=== PATIENT | male | born 1975 | race Caucasian/White ===

== ENCOUNTER 2020-05-06 15:33 | Outpatient (REF) | payer MEDICARE, MEDICAID, SELFPAY ==
--- NOTE | 2020-05-06 | US_ITS ---
EXAMINATION: US RETROPERITONEAL LIMITED (RENAL ONLY) CLINICAL INFORMATION: Kidney stones. COMPARISON: CT abdomen and pelvis 05/06/2019. Renal ultrasound 07/27/2017 and 07/01/2017. KUB 11/22/2007 and 07/28/2007. TECHNIQUE: Real-time imaging of the kidneys. FINDINGS: RIGHT KIDNEY: 11.2 x 5.6 x 6.1 cm (SAG x AP x TRV). The kidney is normal in size, contour, and echogenicity. Renal cortical thickness is normal. No calculi or focal parenchymal lesions. No hydronephrosis. LEFT KIDNEY: 12.5 x 7.0 x 6.5 cm (SAG x AP x TRV). The kidney is normal in size, contour, and echogenicity. Renal cortical thickness is normal. No renal calculi or hydronephrosis. Upper pole simple cyst measuring 1.4 x 1 x 1.2 cm. ADDITIONAL FINDINGS: Incidental note is made of a complex cyst in the right lobe of the liver measuring 3.4 x 3 x 3.2 cm. Internal septation noted. No Doppler vascularity. This corresponds with the appearance on previous CT. US/US renal BI IMPRESSION: No hydronephrosis. No renal calculi are seen. Left renal cyst noted..
== END 2020-05-06 15:34 | disposition home or self-care (01) ==
LOC: HO.HMGCX 15:33
PROVIDERS: Visit Provider Internal Medicine
DX: N20.0 Calculus of kidney (principal)
CPT/HCPCS: 76775

== ENCOUNTER → 2020-07-18 09:20 | Outpatient (REF) | payer MEDICARE, MEDICAID, SELFPAY ==
--- NOTE | 2020-07-18 09:30 | CA_ITS ---
Transthoracic Echocardiogram Patient (Last, First, Middle): Bhanu Marc, Gender: Male Date of : 1975 Age: 44 Procedure Date: 07/18/2020 Procedure Type: Transthoracic Echocardiogram Location: OP Height: 182.88 cm Weight: 106.6 kg BSA: 2.28 m2 Heart Rate: bpm BP: 136 / 80 mmHg Cabinet Professional: Referring MD: Kirby Trinidad MD Symptoms: R40.20 UNSPECIFIED COMA Study Quality: Good ECG Rhythm: Sinus Conclusions: - Normal study Findings Left Ventricle Normal left ventricular size, thickness, systolic function, and wall motion. The visually estimated ejection fraction is between 55-60%. Diastolic function is normal for age. Right Ventricle Normal right ventricular cavity size and systolic function. Atria Both atria are normal in size. Aortic Valve Normal aortic valve structure and function. There is no aortic valve stenosis. There is no aortic valve regurgitation. Mitral Valve Normal mitral valve structure and function. There is trace mitral valve regurgitation. There is no mitral valve stenosis. Pulmonic Valve Normal pulmonic valve structure and function. There is trace pulmonic valve regurgitation. Tricuspid Valve Normal tricuspid valve structure and function. There is trace tricuspid valve regurgitation. Normal right atrial pressure. There is no evidence of pulmonary hypertension. Great Vessels All visible segments of the aorta are normal in size. The visualized portions of the pulmonary artery and branches are normal. Venous The inferior vena cava is normal in size and collapses greater than 50% with inspiration. Pericardium/Pleural There is no evidence of pericardial effusion. Prior Study Comparison No prior study available for comparison. Measurements 2D Linear Measurements IVSd: 1.06 0.6-0.9/0.6-1.0 cm LVIDd: 4.30 3.9-5.3/4.2-5.9 cm LVIDd Index: 1.89 2.4-3.2/2.2-3.1 cm/m2 LVIDs: 2.91 2.0-3.6 cm LVPWd: 1.03 0.7-1.1 cm Ao Root: 3.00 2.1-3.5 cm LA Diam: 3.70 2.7-3.8/3.0-4.0 cm LAIDs Index: 1.62 1.5-2.3 cm/m2 LV Mass: 188.67 67-162/88-224 g LV Mass Index: 82.75 43-95/49-115 g/m2 LVOT Diam: 2.10 3.0+(-)1.3 cm Mitral Valve MV Pk E: 0.67 MV PK A: 0.66 MV Decel Time: 140.00 E/A: 1.00 E'Lateral: 9.57 E'Medial: 7.64 E/E' Med: 8.70 E/E' Lat: 6.90 PHT: 41.00 MVA PHT: 5.37 Decel [place]: 4.75 Aortic Valve AoV Pk Hay: 1.18 AoV Mn Hay: 0.77 AoV VTI: 0.23 AoV Pk Grad: 6.00 Aov Mn Grad: 3.00 YOHANNES Cont.VTI: 2.75 LVOT LVOT Pk Hay: 0.87 LVOT Mn Hay: 0.61 LVOT VTI: 0.18 LVOT Pk Grad: 3.00 LVOT Mn Grad: 2.00 LVOT Diam: 2.10 LVOT Area: 3.46 Diastolic Function MV Pk E: 0.67 MV Pk A: 0.66 E/A: 1.00 E'Medial: 7.64 E/E' Med: 8.70 E' Laterial: 9.57 E/E' Lat: 6.90 Tricuspid Valve TR Pk Hay: 2.07 TR Pk Grad: 17.00 RA Press: 3.00 RVSP: 20.00 Great Vessels Aorta Ao Root-2D: 3.00 2.0-3.7 cm Ao Asc: 3.10 2.1-3.4 cm Pulmonary Valve PV Pk Hay: 1.38 Peak PV Grad: 8.00 Updated in Other Vendor System with Status of Final Demetrio Arceo MD electronically signed on 07/19/2020 12:56:27 PM with status of Final
== END ==
LOC: HO.CARD 09:20
PROVIDERS: Visit Provider Internal Medicine
DX: R40.20 Unspecified coma (principal)
CPT/HCPCS: 93306

== ENCOUNTER 2020-07-21 17:34 | Emergency (ER) | payer MEDICARE, MEDICAID, SELFPAY ==
[2020-07-21 18:01] VITALS: BP 123/64; PULSE 88; RESP 20; TEMP 36.9; O2SAT 97; BMI 67.2
[2020-07-21 18:41] LABS: Basophils Percent Auto 0.2 % (0-2); Eosinophils Percent Auto 0.3 % (0-4); Hematocrit 45.9 % (42-52); Hemoglobin 15.4 g/dl (14.0-18.0); Imm Gran Abs Auto 0.06 X10*3/uL (0.00-0.03); Imm Gran Pct Auto 0.5 % (0.0-0.4); Lymphocytes Absolute Auto 2.3 X10*3/uL (1.2-4.9); Lymphocytes Percent Auto 17.5 % (20-40); MANUAL DIFF FLAG NO; Mean Corpuscular HGB Conc 33.6 g/dl (31.0-36.0); Mean Corpuscular Volume 86.4 fL (80-98); Mean Platelet Volume 9.4 fL (9.4-12.4); Monocytes Absolute Auto 0.9 X10*3/uL (0.1-1.2); Monocytes Percent Auto 6.7 % (2-11); Neutrophils Absolute Auto 9.7 X10*3/uL (2.0-8.3); Neutrophils Percent Auto 74.8 % (45-73); Platelet Count 289 X10*3/uL (160-400); Red Blood Count 5.31 X10*6/uL (4.60-5.80); Red Cell Distribution Width 13.5 % (11.0-16.0)
[2020-07-21 19:00] LABS: Anion Gap 14 (12-20); Blood Urea Nitrogen 13 mg/dL (9-16); Calcium 9.2 mg/dL (8.4-10.2); Carbon Dioxide 24 mmol/L (22-29); Chloride 106 mmol/L (96-108); Creatinine Clr Calc Pharmacy 150.1; Estimated Glomerular Filt Rate > 60; Glucose Random 114 mg/dL (60-115); Potassium 3.7 mmol/L (3.3-5.1); Sodium 140 mmol/L (135-145)
[2020-07-21 19:37] LABS: Glucose Urine UA NEG (NEG); Leukocyte Esterase Urine NEG (NEG); Nitrite Urine NEG (NEG); PH 5.5 (5.0-8.0); Specific Gravity - Urine >= 1.030 (1.005-1.025); Urine Blood 3+ (NEG); Urine Ketones NEG (NEG); Urine Protein 1+ MG/DL (NEG-TRACE)
[2020-07-21 19:42] LABS: Appearance Urine HAZY; Color Urine YELLOW
[2020-07-21 19:45] LABS: Bacteria Urine 1+ /LPF; Calcium Oxalate Crystals Urine 1+ /LPF; Mucus Urine 2+ /LPF; Squamous Epithelial Cell Urine TRACE /LPF; WBC Urine 0 /HPF (0-4)
== END 2020-07-21 20:10 | disposition left against medical advice (07) ==
PROVIDERS: Emergency Provider Emergency Medicine
DX: R10.9 Unspecified abdominal pain (principal); I10 Essential (primary) hypertension; Z87.442 Personal history of urinary calculi
CPT/HCPCS: 36415; 80048; 81001; 85025; 99282; 99283

== ENCOUNTER 2020-08-19 00:31 | Emergency (ER) | payer MEDICARE, MEDICAID, SELFPAY ==
[2020-08-19] VITALS (7 sets, daily range): BP systolic 120–160; BP diastolic 72–90; PULSE 74–100; RESP 16–20; TEMP 35.9; O2SAT 97–100; BMI 33.0
--- NOTE | ~2020-08-19 | CT_ITS ---
EXAMINATION: CT ABDOMEN AND PELVIS WITHOUT CONTRAST CLINICAL INFORMATION: Flank pain COMPARISON: 05/06/2019 TECHNIQUE: Multidetector volumetric imaging was performed from the superior aspect of the liver through the pubic symphysis. Sagittal and coronal reformatted images were obtained on the technologist's workstation. This CT examination was performed using dose optimization techniques as appropriate, variously including the following: *Automated exposure control *Adjustment of mA and/or kV according to patient size (this includes techniques or standardized protocols for targeted exams where dose is matched to indication/reason for exam; i.e. extremities or head) *Use of iterative reconstruction technique DLP: 939 mGy-cm FINDINGS: LUNG BASES: The visualized lung bases are unremarkable. LIVER, GALLBLADDER, AND BILIARY TREE: Stable appearance of the liver compared to prior, with scattered hypodensities favoring cysts as well as subtle hypoattenuation within the right lobe suggesting nonuniform fatty infiltration. No biliary ductal dilatation is present. The gallbladder appears partially contracted. PANCREAS: Unremarkable. SPLEEN: Unremarkable. ADRENAL GLANDS: Unremarkable. KIDNEYS AND URETERS: There is a proximal right ureteral calculus measuring 7 mm with moderate hydronephrosis and some perinephric stranding. Punctate calculus is noted in the mid right kidney. There are a few scattered left renal calculi measuring up to 3 mm in the upper pole, without hydronephrosis. Small cyst noted in the upper left kidney. BLADDER: Unremarkable. GASTROINTESTINAL TRACT: The small and large bowel are unremarkable. The appendix is unremarkable. No free fluid or free air is seen. ABDOMINAL WALL: No significant hernia is appreciated. LYMPH NODES: Normal. VASCULAR: Scattered atherosclerotic calcifications are present. PELVIC VISCERA: Unremarkable. OSSEOUS STRUCTURES: Unremarkable. CT/CT abdomen pelvis wo con IMPRESSION: Proximal right ureteral calculus measuring 7 mm with moderate hydronephrosis.
--- NOTE | 2020-08-19 01:53 | ED.ABDPAIN ---
HPI - Abdominal Pain General Chief Complaint: Abdominal Pain Stated Complaint: ?KIDNEY STONES Time Seen by Provider: 08/19/20 01:53 Source: patient Mode of arrival: ambulatory History of Present Illness HPI narrative: This is a 44-year-old male with history of renal colic and presents with onset right-sided flank pain with radiation anteriorly this started approximately 6:30 p.m. and was associated with nausea, vomiting, chills but no fevers and stated that he was having some difficulty with urination as well. Otherwise, he denies any shortness of breath, chest pain/palpitations, diarrhea. Related Data Home Medications Medication Instructions Recorded Confirmed atorvastatin 40 mg PO DAILY 08/19/20 08/19/20 hydrochlorothiazide 12.5 mg PO DAILY 08/19/20 08/19/20 ibuprofen 600 mg PO Q6H PRN 08/19/20 08/19/20 oxycodone 5 mg PO BID PRN 08/19/20 08/19/20 Previous Rx's Medication Instructions Recorded ketorolac 10 mg PO Q6H PRN 5 Days #20 tab 08/19/20 tamsulosin [Flomax] 0.4 mg PO BEDTIME 4 Days #4 cap 08/19/20 Allergies Allergy/AdvReac Type Severity Reaction Status Date / Time No Known Allergies Allergy Unverified 03/06/20 15:46 [No Known Allergies*] Review of Systems Review of Systems Pertinent positives and negatives as stated in HPI 10 point review of systems is otherwise negative. Physical Exam Vital Signs: Vital Signs: Last Vital Signs Temp 96.6 F L 08/19/20 01:14 Pulse 74 08/19/20 05:16 Resp 16 08/19/20 05:16 BP 120/72 08/19/20 05:16 Pulse Ox 97 08/19/20 04:00 Body Mass Index 33.0 VITAL SIGNS: Reviewed. GENERAL: Well developed, well nourished, in no acute distress. HEAD: Normocephalic/atraumatic, NOSE: Nares patent bilateral OROPHARYNX: no oral lesions noted, posterior pharynx clear NECK: Supple, no adenopathy LUNGS: Normal breath sounds. No adventitious sounds or accessory muscle use. SpO2<97> CARDIOVASCULAR: Regular rate and rhythm without noted murmurs ABDOMEN: Soft, non-tender, non-distended with bowel sounds. NEUROLOGIC: Alert and oriented x 4. Strength and sensation to light touch were grossly intact x 4. Course Course Course Narrative: This is a 44-year-old male with history and clinical presentation most consistent with renal colic and doubt gallbladder or appendix etiologies. - IV fluids, pain medication, labs, UA, CT scan, antiemetic On review of all investigations there is a mild leukocytosis with urinalysis positive for hematuria and a CT scan demonstrating a right proximal 7mm stone. With adequate pain control patient was tolerating oral intake and agreeable for discharge and follow with his urologist 1st thing in the morning. MDM - Abdominal Pain Lab Data Result diagrams: 08/19/20 02:09 08/19/20 02:09 Labs: Lab Results 08/19/20 08/19/20 08/19/20 Range/Units 02:08 02:09 02:09 WBC 12.7 H (4.8-10.8) X10*3/uL RBC 5.40 (4.60-5.80) X10*6/uL Hgb 15.2 (14.0-18.0) g/dl Hct 46.0 (42-52) % MCV 85.2 (80-98) fL MCH 28.1 (27.0-33.0) pg MCHC 33.0 (31.0-36.0) g/dl RDW 13.4 (11.0-16.0) % Plt Count 325 (160-400) X10*3/uL MPV 9.3 L (9.4-12.4) fL Immature Gran % (Auto) 0.5 H (0.0-0.4) % Neut % (Auto) 64.9 (45-73) % Lymph % (Auto) 25.4 (20-40) % [place] % (Auto) 8.4 (2-11) % Eos % (Auto) 0.6 (0-4) % Baso % (Auto) 0.2 (0-2) % Lymph # (Auto) 3.2 (1.2-4.9) X10*3/uL [place] # (Auto) 1.1 (0.1-1.2) X10*3/uL Eos # (Auto) 0.1 (0.0-0.4) X10*3/uL Baso # (Auto) 0.0 (0.0-0.2) X10*3/uL Abs Immat Gran (auto) 0.06 H (0.00-0.03) X10*3/uL Absolute Neuts (auto) 8.3 (2.0-8.3) X10*3/uL Absolute Nucleated RBC 0.000 (0.0-0.012) X10*3/uL Nucleated RBC % (auto) 0.0 (0.0-0.2) /100WBC Sodium 140 (135-145) mmol/L Potassium 3.7 (3.3-5.1) mmol/L Chloride 104 (96-108) mmol/L Carbon Dioxide 27 (22-29) mmol/L Anion Gap 13 (12-20) BUN 14 (9-16) mg/dL Creatinine 1.16 (0.5-1.4) mg/dL Estim Creat Clear Calc 97.2 Estimated GFR > 60 Random Glucose 105 (60-115) mg/dL Calcium 9.7 (8.4-10.2) mg/dL Total Bilirubin 0.6 (0.0-1.0) mg/dL AST 17 (5-37) U/L ALT 26 (0-40) U/L Alkaline Phosphatase 112 (39-117) U/L Total Protein 7.9 (6.5-8.0) g/dL Albumin 4.6 (3.5-5.0) g/dL Lipase 29 (8-78) U/L Urine Color DARK YELLOW Urine Appearance CLOUDY Urine pH 5.5 (5.0-8.0) Ur Specific [place] >= 1.030 H (1.005-1.025) Urine Protein 1+ H (NEG-TRACE) MG/DL Urine Glucose (UA) NEG (NEG) MG/DL Urine Ketones 5 (NEG) MG/DL Urine Blood 3+ H (NEG) Urine Nitrite NEG (NEG) Ur Leukocyte Esterase NEG (NEG) Urine RBC 76-150 H (0) /HPF Urine WBC 0 (0-4) /HPF Ur Squamous Epith Cells 1+ /LPF Urine Bacteria NONE /LPF Urine Mucus 2+ /LPF Discharge Plan Discharge Clinical Impression: Ureterolithiasis Patient Disposition: Home, Self-Care Instructions: Ureteral Stones (ED) Additional Instructions: 1. Resume all home medications as prescribed. 2. Follow-up with [facility] this morning for definitive treatment right ureteral stone. Do not hesitate to return to the emergency department for any acute worsening of your symptoms. Prescriptions: New tamsulosin [Flomax] 0.4 mg capsule 0.4 mg PO BEDTIME 4 Days Qty: 4 RF: 0 ketorolac 10 mg tablet 10 mg PO Q6H PRN (Reason: pain) 5 Days Qty: 20 RF: 0 No Action atorvastatin 40 mg Tablet 40 mg PO DAILY RF: 0 ibuprofen 600 mg Tablet 600 mg PO Q6H PRN (Reason: Pain) RF: 0 oxycodone 5 mg Tablet 5 mg PO BID PRN (Reason: Pain) RF: 0 hydrochlorothiazide 12.5 mg Tablet 12.5 mg PO DAILY RF: 0 Referrals: Kirby Mitchell MD [Primary Care Provider] - 2 days Interventions: ED Discharge Assessment Last Done: 08/19/20 05:55 Discharge Date/Time: 08/19/20 05:56 [facility] Past Medical History Source: nursing notes reviewed Medical History Hypertension Kidney calculus Kidney disease 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
[2020-08-19 02:14] LABS: Basophils Percent Auto 0.2 % (0-2); Eosinophils Absolute Auto 0.1 X10*3/uL (0.0-0.4); Eosinophils Percent Auto 0.6 % (0-4); Hemoglobin 15.2 g/dl (14.0-18.0); Imm Gran Abs Auto 0.06 X10*3/uL (0.00-0.03); Imm Gran Pct Auto 0.5 % (0.0-0.4); Lymphocytes Absolute Auto 3.2 X10*3/uL (1.2-4.9); Lymphocytes Percent Auto 25.4 % (20-40); Mean Corpuscular Hemoglobin 28.1 pg (27.0-33.0); Mean Corpuscular Volume 85.2 fL (80-98); Mean Platelet Volume 9.3 fL (9.4-12.4); Monocytes Absolute Auto 1.1 X10*3/uL (0.1-1.2); Monocytes Percent Auto 8.4 % (2-11); Neutrophils Absolute Auto 8.3 X10*3/uL (2.0-8.3); Neutrophils Percent Auto 64.9 % (45-73); Platelet Count 325 X10*3/uL (160-400); Red Cell Distribution Width 13.4 % (11.0-16.0); White Blood Count 12.7 X10*3/uL (4.8-10.8)
[2020-08-19 02:15] LABS: MANUAL DIFF FLAG NO
[2020-08-19 02:16] LABS: Appearance Urine CLOUDY; Color Urine DARK YELLOW; Glucose Urine UA NEG (NEG); Leukocyte Esterase Urine NEG (NEG); Nitrite Urine NEG (NEG); PH 5.5 (5.0-8.0); Specific Gravity - Urine >= 1.030 (1.005-1.025); Urine Blood 3+ (NEG); Urine Ketones 5 MG/DL (NEG); Urine Protein 1+ MG/DL (NEG-TRACE)
[2020-08-19] MEDS: Ketorolac Tromethamine 15 MG/ML VIAL IVPUSH (02:27)
[2020-08-19] MEDS: 0.9 % Sodium Chloride 1,000 ML 999 ML IV (02:27)
[2020-08-19] MEDS: ondansetron HCL 4 MG/2 ML VIAL IVPUSH (02:28)
[2020-08-19 02:29] LABS: Mucus Urine 2+ /LPF; Squamous Epithelial Cell Urine 1+ /LPF; WBC Urine 0 /HPF (0-4)
--- NOTE | 2020-08-19 02:30 | PC.NURSE ---
pt to and from ct scan without incident. c/o 03/29 flank pain, right sided and nausea. medicated as ordered. labs and urine sent. will continue to monitor
[2020-08-19 02:41] LABS: Alanine Aminotransferase 26 U/L (0-40); Albumin Level 4.6 g/dL (3.5-5.0); Alkaline Phosphatase 112 U/L (39-117); Anion Gap 13 (12-20); Aspartate Amino Transferase 17 U/L (5-37); Bilirubin Total 0.6 mg/dL (0.0-1.0); Blood Urea Nitrogen 14 mg/dL (9-16); Calcium 9.7 mg/dL (8.4-10.2); Carbon Dioxide 27 mmol/L (22-29); Chloride 104 mmol/L (96-108); Creatinine Clr Calc Pharmacy 97.2; Estimated Glomerular Filt Rate > 60; Glucose Random 105 mg/dL (60-115); Lipase 29 U/L (8-78); Potassium 3.7 mmol/L (3.3-5.1); Sodium 140 mmol/L (135-145); Total Protein 7.9 g/dL (6.5-8.0)
[2020-08-19] MEDS: fentaNYL citrate/PF 100 MCG/2 ML VIAL 25 MCG IVPUSH ×2 (03:17→04:14)
[2020-08-19] MEDS: Tamsulosin HCL 0.4 MG CAPSULE 0.8 MG PO (03:50)
== END 2020-08-19 05:56 | disposition home or self-care (01) ==
PROVIDERS: Emergency Provider Student in an Organized Health Care Education/Training Program; PCP Internal Medicine
DX: N20.1 Calculus of ureter (principal); Z79.899 Other long term (current) drug therapy
CPT/HCPCS: 36415; 74176; 80053; 81001; 83690; 85025; 96365; 96375; 96376; 99284; J1885; J2405; J3010

== ENCOUNTER 2020-10-19 02:21 | Emergency (ER) | payer MEDICARE, MEDICAID, SELFPAY ==
[2020-10-19] VITALS (11 sets, daily range): BP systolic 114–158; BP diastolic 60–90; PULSE 75–117; RESP 16–20; TEMP 37.2; O2SAT 97–100; BMI 32.9
--- NOTE | ~2020-10-19 | CT_ITS ---
EXAMINATION: CT ABDOMEN AND PELVIS WITHOUT CONTRAST CLINICAL INFORMATION: Left flank pain. Rule out kidney stone COMPARISON: 08/19/2020 TECHNIQUE: Multidetector volumetric imaging was performed from the superior aspect of the liver through the pubic symphysis. Sagittal and coronal reformatted images were obtained on the technologist's workstation. This CT examination was performed using dose optimization techniques as appropriate, variously including the following: *Automated exposure control *Adjustment of mA and/or kV according to patient size (this includes techniques or standardized protocols for targeted exams where dose is matched to indication/reason for exam; i.e. extremities or head) *Use of iterative reconstruction technique DLP: 850 mGy-cm FINDINGS: LUNG BASES: The visualized lung bases are unremarkable. LIVER, GALLBLADDER, AND BILIARY TREE: The liver is normal in size, shape, and attenuation. No biliary ductal dilatation is present. Multiple hypoattenuating lesions are seen in the liver. Some of these are too small to characterize. The larger of the lesions measure simple fluid, consistent with cysts. These are unchanged from prior. PANCREAS: Unremarkable. SPLEEN: Unremarkable. ADRENAL GLANDS: Unremarkable. KIDNEYS AND URETERS: The kidneys are normal in size, shape, and attenuation. Although there is no hydronephrosis or hydroureter. There is a 0.3 cm calculus in the distal left ureter, approximately 2 cm proximal to the ureterovesicular junction. Nonobstructing 0.3 cm left upper pole renal calculus is 10 cm from the posterior axillary line. BLADDER: Unremarkable. GASTROINTESTINAL TRACT: The stomach is unremarkable. Normal caliber small bowel. There is no obstruction. Normal appendix. No colonic wall thickening or inflammatory change. No free air or free fluid. ABDOMINAL WALL: No significant hernia is appreciated. LYMPH NODES: Normal. VASCULAR: Normal caliber aorta with mild atherosclerotic calcifications. PELVIC VISCERA: The prostate and seminal vesicles are unremarkable. OSSEOUS STRUCTURES: No acute or suspicious osseous abnormality. CT/CT abdomen pelvis wo con IMPRESSION: There is a 0.3 cm distal left ureteral calculus. No significant hydroureteronephrosis. Additional nonobstructing left upper pole 0.3 cm calculus.
--- NOTE | 2020-10-19 02:44 | ED_ITS ---
HPI - Male Genitourinary General Chief complaint: Urogenital-Male Stated complaint: Flank pain Time Seen by Provider: 10/19/20 02:38 Source: patient Mode of arrival: ambulatory Limitations: no limitations History of Present Illness HPI Narrative: 45-year-old male with a history of kidney stones who presents emergency department for evaluation of severe left flank pain radiating to his left lower abdomen x3 days. He states that the pain was initially mild, he did some yd work today and the pain got worse. He states this morning the pain was severe and was 10/10. He describes the pain as a constant sharp/pressure-like pain. The patient had dry heaves. States that became very sweaty, lightheaded and dizzy. The patient was seen on 08/19/2020 and had a 7 mm right proximal ureteral stone. He states that he had lithotripsy and stents placed for the stone. He states that on the previous CT scans he was told that he had stones in both his left and right kidneys. The patient denied fever, chills, chest pain, shortness of breath, frequency, urgency or dysuria. Related Data Home Medications Medication Instructions Recorded Confirmed atorvastatin 40 mg PO DAILY 08/19/20 08/19/20 hydrochlorothiazide 12.5 mg PO DAILY 08/19/20 08/19/20 ibuprofen 600 mg PO Q6H PRN 08/19/20 08/19/20 oxycodone 5 mg PO BID PRN 08/19/20 08/19/20 Previous Rx's Medication Instructions Recorded ketorolac 10 mg PO Q6H PRN 5 Days #20 tab 08/19/20 tamsulosin [Flomax] 0.4 mg PO BEDTIME 4 Days #4 cap 08/19/20 Allergies Allergy/AdvReac Type Severity Reaction Status Date / Time No Known Allergies Allergy Verified 10/19/20 02:42 [No Known Allergies*] Review of Systems Review of Systems: Yes all other systems are reviewed and are negative PMFSH Past Medical History [facility] Narrative: The patient denies tobacco use, he states he occasionally drinks alcohol, denies drug use. 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 Social History Social History Alcohol intake: never Smoking Status: Light tobacco smoker Use of substances other than those prescribed or required for medical reasons: Yes Substance Use Type: Marijuana Substance Use Frequency: Daily Last Used Substance: Hours (ago) Any prior treatment program specific to substance use: No Advance Directives: No Advance Directives Information Provided: No Physical Exam Vital Signs: Vital Signs: Last Vital Signs Temp 98.9 F 10/19/20 02:36 Pulse 87 10/19/20 05:31 Resp 20 10/19/20 05:31 BP 128/60 10/19/20 05:31 Pulse Ox 98 10/19/20 05:31 Body Mass Index 32.9 Const: Other: Diaphoretic General: cooperative and in distress moderate (Secondary to pain) Orientation/consciousness: oriented to person and oriented to place Limitations: no limitations HENMT: Head: Yes normal to inspection, Yes normocephalic and Yes atraumatic Ears: external ears normal General nose exam: Normal external nose present Face and sinus: Yes normal facial exam Mouth: Normal oral and palatal mucosa present Throat: Yes posterior oropharynx normal Eyes: Periorbital: periorbital findings normal Eyelids: Yes eyelids normal Conjunctivae: conjunctivae normal Sclerae: sclerae normal Corneas: corneas normal Pupils: Equal, round and reactive pupils present Direct Ophthalmoscopy: normal light reflex Neck: Neck: Yes full ROM, Yes no lymphadenopathy, Yes no meningeal signs, Yes trachea midline and Yes supple Chest: Chest palpation & inspection: normal inspection of the chest and normal palpation of entire chest wall Resp: Effort & Inspection: normal respiratory effort and able to speak in complete sentences Auscultation: clear to auscultation bilaterally Cardio: Rate: regular rate Rhythm: regular rhythm Heart sounds: S1 normal heart sound present, S2 normal heart sound present and no murmurs GI: Inspection: Yes normal to inspection Palpation (GI): Soft to palpation, Tenderness to palpation present (GI) in the LLQ (Mild), no guarding, not rigid and No hepatosplenomegaly present : General: Yes CVA tenderness (Left, moderate) Back/Spine/Pelvis: Back: CVA tenderness (Left, moderate) Cervical Spine: normal cervical lordosis Thoracic/Lumbar Spine: thoracic and lumbar spine normal to inspection Skin: Lesions: no lesions Rashes: no rashes Wounds: no wounds Neuro: General: oriented to person, oriented to place and no meningeal signs Cranial nerves: Yes CN's II-XII intact bilaterally and Yes Equal, round and reactive pupils present Cognition (Neuro): normal cognition Motor exam (neuro): 5/5 motor strength present throughout Extrem: General: Yes normal to inspection and Yes full ROM Psych: Appearance: well kempt Mental Status: mental status grossly normal Speech and movement: Normal speech and movement present Affect: normal affect Attitude: cooperative Thought process: Normal thought process present Thought content: Normal thought content present Course Course Course Narrative: 45-year-old male with a history of kidney stones who presents emergency department for evaluation of 3 days of left flank and left lower abdominal pain, with the pain becoming severe this morning. On presentation, the patient appeared to be in distress secondary to his pain and was diaphoretic. He does have left-sided CVA tenderness in left lower quadrant tenderness. I ordered a CBC, CMP, lipase, CT scan of the abdomen pelvis without IV contrast. The patient's pain was treated with Dilaudid 1 mg IV and his nausea was treated with Zofran 4 mg IV. He was also ordered to get normal saline IV x1 L. 0345: The patient's laboratory evaluation was normal. Urinalysis revealed 76- 150 RBCs and no WBCs. CT scan of the abdomen pelvis without IV contrast revealed a 3 mm left ureteral stone with no hydroureter hydronephrosis. The patient also has a 3 mm left kidney stone. The patient's pain went from 10/10 to 8/10 after the IV Dilaudid. He was ordered to get Toradol 30 mg IV. 0634: The patient require Dilaudid 1 mg IV x2 more doses. The patient was then discharged home. The patient states that he has oxycodone that as prescribed by his doctor and Flomax left over from his last kidney stone, therefore he does not need any prescriptions. The patient was advised to follow-up with his urologist and return to the emergency department if his symptoms get worse. MDM - Male Genitourinary Lab Data Result diagrams: 10/19/20 03:05 10/19/20 03:05 Labs: Lab Results 10/19/20 10/19/20 10/19/20 Range/Units 03:05 03:05 05:36 WBC 9.4 (4.8-10.8) X10*3/uL RBC 5.29 (4.60-5.80) X10*6/uL Hgb 15.1 (14.0-18.0) g/dl Hct 45.6 (42-52) % MCV 86.2 (80-98) fL MCH 28.5 (27.0-33.0) pg MCHC 33.1 (31.0-36.0) g/dl RDW 13.8 (11.0-16.0) % Plt Count 325 (160-400) X10*3/uL MPV 9.4 (9.4-12.4) fL Immature Gran % (Auto) 0.4 (0.0-0.4) % Neut % (Auto) 53.1 (45-73) % Lymph % (Auto) 36.5 (20-40) % [place] % (Auto) 8.5 (2-11) % Eos % (Auto) 1.2 (0-4) % Baso % (Auto) 0.3 (0-2) % Lymph # (Auto) 3.5 (1.2-4.9) X10*3/uL [place] # (Auto) 0.8 (0.1-1.2) X10*3/uL Eos # (Auto) 0.1 (0.0-0.4) X10*3/uL Baso # (Auto) 0.0 (0.0-0.2) X10*3/uL Abs Immat Gran (auto) 0.04 H (0.00-0.03) X10*3/uL Absolute Neuts (auto) 5.0 (2.0-8.3) X10*3/uL Absolute Nucleated RBC 0.000 (0.0-0.012) X10*3/uL Nucleated RBC % (auto) 0.0 (0.0-0.2) /100WBC Sodium 142 (135-145) mmol/L Potassium 4.1 (3.3-5.1) mmol/L Chloride 108 (96-108) mmol/L Carbon Dioxide 23 (22-29) mmol/L Anion Gap 15 (12-20) BUN 15 (9-16) mg/dL Creatinine 1.03 (0.5-1.4) mg/dL Estim Creat Clear Calc 114.9 Estimated GFR > 60 Random Glucose 109 (60-115) mg/dL Calcium 9.6 (8.4-10.2) mg/dL Total Bilirubin 0.3 (0.0-1.0) mg/dL AST 24 D (5-37) U/L ALT 28 (0-40) U/L Alkaline Phosphatase 103 (39-117) U/L Total Protein 8.1 H (6.5-8.0) g/dL Albumin 4.5 (3.5-5.0) g/dL Lipase 45 (8-78) U/L Urine Color STRAW Urine Appearance HAZY Urine pH 5.5 (5.0-8.0) Ur Specific [place] >= 1.030 H (1.005-1.025) Urine Protein 2+ H (NEG-TRACE) MG/DL Urine Glucose (UA) NEG (NEG) MG/DL Urine Ketones NEG (NEG) MG/DL Urine Blood 3+ H (NEG) Urine Nitrite NEG (NEG) Ur Leukocyte Esterase NEG (NEG) Urine RBC 76-150 H (0) /HPF Urine WBC 1-4 (0-4) /HPF Ur Squamous Epith Cells 1+ /LPF Calcium Oxalate Crystal 1+ /LPF Urine Bacteria 2+ /LPF Hyaline Casts 1-4 /LPF Urine Mucus 2+ /LPF Discharge Plan Discharge Clinical Impression: Calculus of distal left ureter, Renal colic on left side Patient Disposition: Home, Self-Care Instructions: How to Strain Your Urine (ED), Kidney Stones (ED) Additional Instructions: Your CT scan of your abdomen pelvis without IV contrast was read by the radiologist as below, show this reading to your urologist. You have a kidney stone in your left ureter that measures 3 mm and this is what is causing your pain. Take ibuprofen 200 mg pills, 3 pills every 6 hours as needed for pain. Take Tylenol (acetaminophen) 500 mg pills, 2 pills every 4 to 6 hours as needed for pain. Continue taking your oxycodone as prescribed by your doctor. Continue taking her Flomax as prescribed by your doctor. Follow-up with your urologist in 2 days. Please return to the emergency department if your symptoms get worse or if you develop any symptoms that are concerning to you. KIDNEYS AND URETERS: The kidneys are normal in size, shape, and attenuation. Although there is no hydronephrosis or hydroureter. There is a 0.3 cm calculus in the distal left ureter, approximately 2 cm proximal to the ureterovesicular junction. Nonobstructing 0.3 cm left upper pole renal calculus is 10 cm from the posterior axillary line. IMPRESSION: There is a 0.3 cm distal left ureteral calculus. No significant hydroureteronephrosis. Additional nonobstructing left upper pole 0.3 cm calculus. Prescriptions: No Action atorvastatin 40 mg Tablet 40 mg PO DAILY RF: 0 ibuprofen 600 mg Tablet 600 mg PO Q6H PRN (Reason: Pain) RF: 0 oxycodone 5 mg Tablet 5 mg PO BID PRN (Reason: Pain) RF: 0 hydrochlorothiazide 12.5 mg Tablet 12.5 mg PO DAILY RF: 0 tamsulosin [Flomax] 0.4 mg capsule 0.4 mg PO BEDTIME 4 Days Qty: 4 RF: 0 ketorolac 10 mg tablet 10 mg PO Q6H PRN (Reason: pain) 5 Days Qty: 20 RF: 0
[2020-10-19] MEDS: ondansetron HCL 4 MG/2 ML VIAL IVPUSH (03:07)
[2020-10-19] MEDS: 0.9 % Sodium Chloride 1,000 ML 999 ML IV (03:07)
[2020-10-19] MEDS: HYDROmorphone HCl 1 MG/ML SYRINGE IVPUSH ×3 (03:07→06:39)
[2020-10-19 03:09] LABS: Basophils Percent Auto 0.3 % (0-2); Eosinophils Absolute Auto 0.1 X10*3/uL (0.0-0.4); Eosinophils Percent Auto 1.2 % (0-4); Hematocrit 45.6 % (42-52); Hemoglobin 15.1 g/dl (14.0-18.0); Imm Gran Abs Auto 0.04 X10*3/uL (0.00-0.03); Imm Gran Pct Auto 0.4 % (0.0-0.4); Lymphocytes Absolute Auto 3.5 X10*3/uL (1.2-4.9); Lymphocytes Percent Auto 36.5 % (20-40); MANUAL DIFF FLAG NO; Mean Corpuscular HGB Conc 33.1 g/dl (31.0-36.0); Mean Corpuscular Hemoglobin 28.5 pg (27.0-33.0); Mean Corpuscular Volume 86.2 fL (80-98); Mean Platelet Volume 9.4 fL (9.4-12.4); Monocytes Absolute Auto 0.8 X10*3/uL (0.1-1.2); Monocytes Percent Auto 8.5 % (2-11); Neutrophils Percent Auto 53.1 % (45-73); Platelet Count 325 X10*3/uL (160-400); Red Blood Count 5.29 X10*6/uL (4.60-5.80); Red Cell Distribution Width 13.8 % (11.0-16.0); White Blood Count 9.4 X10*3/uL (4.8-10.8)
[2020-10-19 03:46] LABS: Alanine Aminotransferase 28 U/L (0-40); Albumin Level 4.5 g/dL (3.5-5.0); Alkaline Phosphatase 103 U/L (39-117); Anion Gap 15 (12-20); Aspartate Amino Transferase 24 U/L (5-37); Bilirubin Total 0.3 mg/dL (0.0-1.0); Blood Urea Nitrogen 15 mg/dL (9-16); Calcium 9.6 mg/dL (8.4-10.2); Carbon Dioxide 23 mmol/L (22-29); Chloride 108 mmol/L (96-108); Creatinine Clr Calc Pharmacy 114.9; Estimated Glomerular Filt Rate > 60; Glucose Random 109 mg/dL (60-115); Lipase 45 U/L (8-78); Potassium 4.1 mmol/L (3.3-5.1); Sodium 142 mmol/L (135-145); Total Protein 8.1 g/dL (6.5-8.0)
[2020-10-19] MEDS: Ketorolac Tromethamine 30 MG/ML VIAL IVPUSH (03:52)
[2020-10-19 05:43] LABS: Glucose Urine UA NEG (NEG); Leukocyte Esterase Urine NEG (NEG); Nitrite Urine NEG (NEG); PH 5.5 (5.0-8.0); Specific Gravity - Urine >= 1.030 (1.005-1.025); Urine Blood 3+ (NEG); Urine Ketones NEG (NEG); Urine Protein 2+ MG/DL (NEG-TRACE)
[2020-10-19 05:48] LABS: Appearance Urine HAZY; Color Urine STRAW
[2020-10-19 05:55] LABS: Bacteria Urine 2+ /LPF; Calcium Oxalate Crystals Urine 1+ /LPF; Mucus Urine 2+ /LPF; Squamous Epithelial Cell Urine 1+ /LPF
== END 2020-10-19 07:40 | disposition home or self-care (01) ==
PROVIDERS: Emergency Provider Emergency Medicine Emergency Medical Services; PCP Internal Medicine
DX: N20.2 Calculus of kidney with calculus of ureter (principal); Z87.442 Personal history of urinary calculi; I10 Essential (primary) hypertension; F17.210 Nicotine dependence, cigarettes, uncomplicated; F12.90 Cannabis use, unspecified, uncomplicated
CPT/HCPCS: 36415; 74176; 80053; 81001; 83690; 85025; 96361; 96374; 96375; 96376; 99284; J1170; J1885; J2405

== ENCOUNTER 2020-12-04 10:29 | Outpatient (REF) | payer MEDICARE, MEDICAID, SELFPAY ==
--- NOTE | ~2020-12-04 | XR_ITS ---
EXAMINATION: XR LUMBOSACRAL SPINE CLINICAL INFORMATION: Lumbago with right sciatica. COMPARISON: CT scan of the abdomen and pelvis dated 10/19/20. TECHNIQUE: Three views of the lumbosacral spine. FINDINGS: There is minimal osteophytosis at L2-3, L3-4 and L4-5. Disc spaces are well-maintained. Alignment is normal. Vertebral body heights are maintained. Posterior elements are normal. The paravertebral soft tissues are normal. XR/XR lumbar spine 2-3V IMPRESSION: Minimal spondylosis.
== END 2020-12-04 10:30 | disposition home or self-care (01) ==
LOC: HO.XRAY 10:29
PROVIDERS: Absent Provider Internal Medicine; PCP Internal Medicine; Visit Provider Internal Medicine
DX: M54.41 Lumbago with sciatica, right side (principal)
CPT/HCPCS: 72100

== ENCOUNTER 2023-01-18 10:04 | Outpatient (REF) | payer MEDICARE, MEDICAID, SELFPAY ==
--- NOTE | ~2023-01-18 | XR_ITS ---
EXAMINATION: XR WRIST, LEFT CLINICAL INFORMATION: Pain COMPARISON: None available. TECHNIQUE: PA, lateral, and oblique views of the left wrist. FINDINGS: The bones and soft tissues are normal. No fracture. Alignment is anatomic with normal joint spaces. No erosions or abnormal soft tissue calcifications. XR/XR wrist LT min 3V IMPRESSION: Normal left wrist.
== END 2023-01-18 10:05 | disposition home or self-care (01) ==
LOC: HO.XRAY 10:04
PROVIDERS: Visit Provider General Practice
DX: M25.532 Pain in left wrist (principal)
CPT/HCPCS: 73110

== ENCOUNTER 2023-03-30 11:00 | Outpatient (RCR) | payer MEDICARE, MEDICAID, SELFPAY | END 2023-03-31 07:02 | disposition home or self-care (01) | LOC: HO.OT 11:00 | PROVIDERS: PCP Internal Medicine; Visit Provider General Practice | DX: M25.532 Pain in left wrist (principal) | CPT/HCPCS: 29125; 97035; 97110; 97140; 97166; 97760 ==

== ENCOUNTER 2023-07-27 12:46 | Outpatient (REF) | payer MEDICARE, MEDICAID, SELFPAY ==
[2023-07-27 14:36] LABS: MANUAL DIFF FLAG NO
[2023-07-27 14:42] LABS: Basophils Percent Auto 0.3 % (0-2); Eosinophils Percent Auto 0.4 % (0-4); Hematocrit 48.3 % (42.0-52.0); Hemoglobin 15.8 g/dl (14.0-18.0); Imm Gran Abs Auto 0.06 X10*3/uL (0.00-0.03); Imm Gran Pct Auto 0.6 % (0.0-0.4); Lymphocytes Absolute Auto 2.7 X10*3/uL (1.2-4.9); Lymphocytes Percent Auto 25.6 % (20-40); Mean Corpuscular HGB Conc 32.7 g/dl (31.0-36.0); Mean Corpuscular Hemoglobin 28.2 pg (27.0-33.0); Mean Corpuscular Volume 86.1 fL (80.0-98.0); Mean Platelet Volume 10.1 fL (9.4-12.4); Monocytes Absolute Auto 0.6 X10*3/uL (0.1-1.2); Monocytes Percent Auto 5.8 % (2-11); Neutrophils Percent Auto 67.3 % (45-73); Platelet Count 321 X10*3/uL (160-400); Red Blood Count 5.61 X10*6/uL (4.60-5.80); White Blood Count 10.3 X10*3/uL (4.8-10.8)
[2023-07-27 15:00] LABS: Alanine Aminotransferase 26 U/L (0-40); Albumin Level 4.5 g/dL (3.5-5.0); Alkaline Phosphatase 92 U/L (39-117); Anion Gap 15 (12-20); Aspartate Amino Transferase 17 U/L (5-37); Bilirubin Total 0.4 mg/dL (0.0-1.0); Blood Urea Nitrogen 13 mg/dL (9-16); Calcium 9.8 mg/dL (8.4-10.2); Carbon Dioxide 26 mmol/L (22-29); Chloride 107 mmol/L (96-108); Cholesterol 288 mg/dL (<200); Estimated Glomerular Filt Rate > 60; Glucose Random 142 mg/dL (60-115); HDL Cholesterol 41 mg/dL (>40); Potassium 3.3 mmol/L (3.3-5.1); Sodium 145 mmol/L (135-145); Total Protein 8.3 g/dL (6.5-8.0); Triglycerides 428 mg/dL (<150)
== END 2023-07-27 12:47 | disposition home or self-care (01) ==
LOC: HO.CHCLDS 12:46
PROVIDERS: Visit Provider Internal Medicine
DX: I10 Essential (primary) hypertension (principal)
CPT/HCPCS: 36415; 80053; 80061; 85025

== ENCOUNTER 2023-09-05 09:22 | Outpatient (REF) | payer MEDICARE, MEDICAID, SELFPAY ==
[2023-09-05 14:43] LABS: Estimated Average Glucose 117 mg/dL; Hemoglobin A1c % 5.7 % (<6.0)
[2023-09-05 14:54] LABS: Alanine Aminotransferase 25 U/L (0-40); Albumin Level 4.6 g/dL (3.5-5.0); Alkaline Phosphatase 106 U/L (39-117); Anion Gap 18 (12-20); Aspartate Amino Transferase 18 U/L (5-37); Bilirubin Direct 0.2 mg/dL (0.0-0.5); Bilirubin Total 0.6 mg/dL (0.0-1.0); Blood Urea Nitrogen 12 mg/dL (9-16); Calcium 9.8 mg/dL (8.4-10.2); Carbon Dioxide 26 mmol/L (22-29); Chloride 101 mmol/L (96-108); Cholesterol 228 mg/dL (<200); Estimated Glomerular Filt Rate > 60; Glucose Fasting 80 mg/dL (60-99); HDL Cholesterol 37 mg/dL (>40); LDL Cholesterol Calculated 145 mg/dL (<100); Potassium 3.7 mmol/L (3.3-5.1); Sodium 141 mmol/L (135-145); Total Protein 8.4 g/dL (6.5-8.0); Triglycerides 230 mg/dL (<150)
== END 2023-09-05 09:23 | disposition home or self-care (01) ==
LOC: HO.CHCLDS 09:22
PROVIDERS: Visit Provider Internal Medicine
DX: R73.09 Other abnormal glucose (principal); E78.2 Mixed hyperlipidemia
CPT/HCPCS: 36415; 80048; 80061; 80076; 83036

== ENCOUNTER 2024-01-05 10:45 | Outpatient (REF) | payer MEDICARE, MEDICAID, SELFPAY ==
[2024-01-05 14:21] LABS: Alanine Aminotransferase 25 U/L (0-40); Albumin Level 4.5 g/dL (3.5-5.0); Alkaline Phosphatase 88 U/L (39-117); Anion Gap 16 (12-20); Aspartate Amino Transferase 18 U/L (5-37); Bilirubin Total 0.7 mg/dL (0.0-1.0); Blood Urea Nitrogen 13 mg/dL (9-16); Calcium 9.9 mg/dL (8.4-10.2); Carbon Dioxide 25 mmol/L (22-29); Chloride 105 mmol/L (96-108); Cholesterol 245 mg/dL (<200); Estimated Glomerular Filt Rate > 60; Glucose Random 110 mg/dL (60-115); HDL Cholesterol 40 mg/dL (>40); LDL Cholesterol Calculated 165 mg/dL (<100); Potassium 3.7 mmol/L (3.3-5.1); Sodium 142 mmol/L (135-145); Total Protein 7.9 g/dL (6.5-8.0); Triglycerides 202 mg/dL (<150)
== END 2024-01-05 10:46 | disposition home or self-care (01) ==
LOC: HO.CHCLDS 10:45
PROVIDERS: Visit Provider Internal Medicine
DX: E78.2 Mixed hyperlipidemia (principal)
CPT/HCPCS: 36415; 80053; 80061

== ENCOUNTER 2024-01-12 13:42 | Outpatient (REF) | payer MEDICARE, MEDICAID, SELFPAY ==
--- NOTE | ~2024-01-12 | US_ITS ---
EXAMINATION: US RETROPERITONEAL LIMITED (RENAL ONLY) CLINICAL INFORMATION: History of kidney stone, right-sided acute pain. COMPARISON: CT abdomen and pelvis 10/19/2020. Renal ultrasound 05/06/2020 and 07/27/2017. TECHNIQUE: Real-time imaging of the kidneys. Limited visualization due to bowel gas. FINDINGS: RIGHT KIDNEY: 12.6 x 5.1 x 5.0 cm (SAG x AP x TRV). No hydronephrosis. No renal calculi. Renal cortical thickness is normal. Limited visualization. LEFT KIDNEY: 11.8 x 6.4 x 4.5 cm (SAG x AP x TRV). No hydronephrosis. No renal calculi. Renal cortical thickness is normal. Limited visualization. Left renal 1.7 cm upper pole cyst with benign features redemonstrated. There is no specific indication for additional imaging at this time. ADDITIONAL FINDINGS: Incidental note made on limited views of the right hepatic lobe of a 3.1 x 3.3 x 3.3 cm complicated cyst with septations which measured 3.4 x 3 x 3.2 cm on renal ultrasound of 05/06/2020. US/US renal BI IMPRESSION: 1. No hydronephrosis. No renal calculi. 2. Incidental note made on limited views of the right hepatic lobe of a 3.1 x 3.3 x 3.3 cm complicated cyst with septations which measured 3.4 x 3 x 3.2 cm on renal ultrasound of 05/06/2020.
== END 2024-01-12 13:43 | disposition home or self-care (01) ==
LOC: HO.US 13:42
PROVIDERS: Visit Provider Internal Medicine
DX: N20.0 Calculus of kidney (principal); N50.89 Other specified disorders of the male genital organs
CPT/HCPCS: 76775

== ENCOUNTER 2024-04-12 14:08 | Outpatient (REF) | payer MEDICARE, MEDICAID, SELFPAY ==
[2024-04-12 18:00] LABS: Alanine Aminotransferase 56 U/L (0-40); Albumin Level 4.4 g/dL (3.5-5.0); Alkaline Phosphatase 85 U/L (39-117); Anion Gap 14 (12-20); Aspartate Amino Transferase 33 U/L (5-37); Bilirubin Total 0.4 mg/dL (0.0-1.0); Blood Urea Nitrogen 18 mg/dL (9-16); Calcium 10.1 mg/dL (8.4-10.2); Carbon Dioxide 25 mmol/L (22-29); Chloride 105 mmol/L (96-108); Cholesterol 247 mg/dL (<200); Estimated Glomerular Filt Rate > 60; Glucose Random 110 mg/dL (60-115); HDL Cholesterol 46 mg/dL (>40); LDL Cholesterol Calculated 144 mg/dL (<100); Potassium 3.6 mmol/L (3.3-5.1); Sodium 140 mmol/L (135-145); Total Protein 8.2 g/dL (6.5-8.0); Triglycerides 286 mg/dL (<150)
== END 2024-04-12 14:09 | disposition home or self-care (01) ==
LOC: HO.CHCLDS 14:08
PROVIDERS: Visit Provider Internal Medicine
DX: E78.2 Mixed hyperlipidemia (principal)
CPT/HCPCS: 36415; 80053; 80061

== ENCOUNTER 2024-06-07 10:23 | Outpatient (REF) | payer MEDICARE, MEDICAID, SELFPAY ==
[2024-06-12 18:59] LABS: Testosterone, Free 31.1 pg/mL (35.0-155.0); Testosterone, Total 185 ng/dL (250-1100)
== END 2024-06-07 10:24 | disposition home or self-care (01) ==
LOC: HO.CHCLDS 10:23
PROVIDERS: Visit Provider Internal Medicine
DX: R68.82 Decreased libido (principal)
CPT/HCPCS: 36415; 84402; 84403

== ENCOUNTER 2024-07-12 11:23 | Outpatient (REF) | payer MEDICARE, MEDICAID, SELFPAY ==
--- NOTE | ~2024-07-12 | XR_ITS ---
EXAMINATION: XR CERVICAL SPINE 4-5 VIEWS HISTORY: NECK PAIN COMPARISON: There are no prior studies for comparison. FINDINGS: AP, lateral, swimmer's, bilateral oblique, and open-mouth odontoid views of the cervical spine are submitted. Osseous mineralization is normal. Seven cervical vertebral bodies are identified maintaining normal height and alignment without evidence of fracture or subluxation. The intervertebral disc spaces are preserved. The neural foramina patent bilaterally. The odontoid and lateral masses of C1 are intact. There is no prevertebral soft tissue swelling. XR/XR cervical spine 5V IMPRESSION: Unremarkable examination of the cervical spine. Electronically signed by: Mert Renteria MD 07/13/2024 03:56 PM EST
--- OUTSIDE RECORDS SUMMARY | 2024-07-12 13:47 | XMS_ITS | Clinical Summary ---
Author Organization [facility] it Address [address] [place] [address] Care Team Providers Care Snuff Blender Name Role Phone Unavailable Primary Care Provider Unavailabl e Social History Tobacco Use Types Packs/Day Years Used Date Smoking Tobacco: Never Assessed Sex and Gender Information Value Date Recorded Sex Assigned at Not on file Gender Identity Not on file Sexual Orientation Not on file Plan of Treatment Health Maintenance Due Date Last Done Comments DTaP,Tdap,and Td Vaccines (1 - Tdap) 1993 Hepatitis B Vaccines (1 of 3 - 19+ 3-dose series) 1993 COVID-19 Vaccine (2023-2 5 season) 2024 Influenza Vaccine (#1) 2024 HIB Vaccines Aged Out No longer eligi ble based on patient's age to complete this topic HPV Vaccines Aged Out No longer eligi ble based on patient's age to complete this topic Hepatitis A Vaccines Aged Out No long er eligible based on patient's age to complete this topic IPV Vaccines Aged Out No longer eligi ble based on patient's age to complete this topic MMR Vaccines Aged Out No longer eligi ble based on patient's age to complete this topic Meningococcal ACWY Vaccine Aged Out N o longer eligible based on patient's age to complete this topic Pneumococcal Vaccine: Pediat rics (0 to 5 Years) and At-Risk Patients (6 to 64 Years) Aged Out No longer eligible b ased on patient's age to complete this topic RSV Immunization Patients Un steve 20 months Aged Out No longer eligible b ased on patient's age to complete this topic Varicella Vaccines Aged Out No longer eligible based on patient's age to complete this topic
--- OUTSIDE RECORDS SUMMARY | 2024-07-12 13:48 | XMS_ITS | Encounter Summary ---
Author Organization [employer] Address [address] [address] Care Team Providers Care Jig Grinder Set Up Operator Name Role Phone Kirby Mitchell MD Primary Care Prov ider Reason for Referral * Consultation (Routine) - Closed Specialty Diagnoses / Procedures Referred By Contact Referred To Contact Chiropractic Medicine Diagnoses Neck pain Kirby Mitchell MD [address] [place] [address] Phone: tel: fax: [facility] [address] [place] [address] Phone: tel: fax: Referral ID Status Reason Start Date Expiration Date V isits Requested Visits Authorized [id number] Closed Specialty Services Required 07/10/2024 07/10/2025 1 1 Encounter Details Date Type Department Care Team (Late st Contact Info) Description 07/10/2024 8:45 AM EST Telemedicine [facility] CHC MED & PEDS [address] [place] [address] Kirby Mitchell MD [address] [place] [address] Low testosterone (Primary Dx); Neck pain; Dietary counseling; Exercise counseling Social History Tobacco Use Types Packs/Day Years Used Date Smoking Tobacco: Former Cigarettes Passive Smoke Exposure: Never Smokeless Tobacco: Never Alcohol Use Standard Drinks/Week Comments Not Currently 0 (1 standard drink = 0.6 oz pur e alcohol) Depression Answer Date Recorded Patient Health Questionnaire-9 Score 9 04/12/2024 Patient Health Questionnaire-9 Score 9 04/12/2024 Last PHQ-9: Questionnaire Data Not on file 1 Housing Stability Answer Date Recorded What is your housing situation today? I have shon stringer 04/14/[address] you li ve. Do you have problems with any of the following? None of the above 04/14/2023 Food Insecurity Answer Date Recorded Within the past 12 months, y ou worried that your food would run out before you got money to buy more: Never True 04/14/2023 Within the past 12 months,th e food you bought just didn't last and you didn't have enough money to get more: Never True Transportation Answer Date Recorded In the past 12 months, has l ack of transportation kept you from medical appts, meetings, work or from getting things needed for daily living? No 04/14/2023 Utilities Answer Date Recorded In the past 12 months, has t he electric, gas, oil or water [employer] threatened to shut off services in your home? No 04/14/2023 Depression Answer Date Recorded Patient Health Questionnaire-2 Score 4 04/12/2024 Sex and Gender Information Value Date Recorded Sex Assigned at Male 04/19/2022 10:14 AM EDT Legal Sex Male 10:14 AM EDT Gender Identity Male 04/19/2022 10:14 AM EDT Sexual Orientation Straight 04/19/2022 10 :14 AM EDT documented as of this encounter Progress Notes * Kirby Trinidad MD - 07/10/2024 8:45 AM EST Subjective Patient ID: Bhanu Marc is a 48 y.o. male who presents for No chief complaint on file.. Neck Pain This is a chronic problem. The pain is associated with nothing. The pain is present in the occipital region. The quality of the pain is described as cramping and aching. The symptoms are aggravated by position. Associated symptoms include headaches. Pertinent negatives include no numbness, tingling, visual change or weakness. Review of Systems Musculoskeletal: Positive for neck pain. Neurological: Positive for headaches. Negative for tingling, weakness and numbness. Objective Physical Exam Neurological: General: No focal deficit present. Mental Status: He is oriented to person, place, and time. Psychiatric: Mood and Affect: Mood normal. Behavior: Behavior normal. Assessment/Plan Problem List Items Addressed This Visit Low testosterone - Primary Will place new testosterone order if low again, will refer to urology for treatment Relevant Orders Testosterone, Free (Dialysis) And Total, MS Neck pain Will place neck xray order, denied trauma, will also refer to chiropractor Relevant Orders XR Cervical Spine 5 View Referral to Chiropractic Other Visit Diagnoses Dietary counseling Exercise counseling documented in this encounter Miscellaneous Notes * Assessment & Plan Note - Kirby Trinidad MD - 07/10/2024 9:08 AM ESTAssociated Problem(s): Neck pain Will place neck xray order, denied trauma, will also refer to chiropractor * Assessment & Plan Note - Kirby Trinidad MD - 07/10/2024 9:08 AM ESTAssociated Problem(s): Low testosterone Will place new testosterone order if low again, will refer to urology for treatment documented in this encounter Plan of Treatment Upcoming Encounters Date Type Department Care Team (Late st Contact Info) Description 07/19/2024 9:00 AM EST Nutrition [facility] DIABETES/NTRN [address] [place] [address] [place] [address] 08/27/2024 10:00 AM EDT Office Visit [facility] ADULT DENTAL [address] [place] [address] Otto Maldonado 09/04/2024 10:00 AM EDT Clinical Support [facility] MED & PEDS [address] [place] [address] Alicia Sanchez, RN [address] [place] [address] Scheduled Orders Name Type Priority Associated Diagnoses Orde r Schedule Testosterone, Free (Dialysis) And Total, MS Lab Routine Low testosterone Expected: 07/10/2024 (Approximate), Expires: 07/10/2025 XR Cervical Spine 5 View Imaging Routine Neck pain Expected: 07/10/2024, Expires: 07/10/2025 Scheduled Referrals Name Type Priority Associated Diagnoses Order Schedule Referral to Chiropractic Outpatient Referral Routine Neck pain Expected: 07/10/2024 (Approximate), Expires: 07/10/2025 documented as of this encounter Visit Diagnoses Diagnosis Low testosterone- Primary Neck pain Cervicalgia Dietary counseling Dietary surveillance and counseling Exercise counseling documented in this encounter Additional Health Concerns Assessment Noted Time PHQ-9 Depression Total Score: 9 04/12/20 24 1:56 PM EDT documented as of this encounter Care Teams Jig Grinder Set Up Operator Relationship Specialty Start Date End Date Kirby Mitchell MD [address] [place] [address] PCP - General Internal Medicine 11/18/19 documented as of this encounter
--- OUTSIDE RECORDS SUMMARY | 2024-07-12 13:48 | XMS_ITS | Encounter Summary ---
Author Organization [employer] Address 75 [facility] [address] [place] [address] Care Team Providers Care Apparel Machinery Instructor Name Role Phone Kirby Mitchell MD Primary Care Prov ider Reason for Visit * Reason Onset Date Comments Med Refill 05/04/2024 Encounter Details Date Type Department Care Team ([facility] st Contact Info) Description 05/04/2024 Telephone [facility] MEDICINE [address] [place] [address] Kirby Mitchell MD [address] [place] [address] Med Refill Social History Tobacco Use Types Packs/Day Years [...] t he electric, gas, oil or water company threatened to shut off services in your home? No 04/14/2023 Depression Answer Date Recorded Patient Health Questionnaire-2 Score 4 04/12/2024 Sex and Gender Information Value Date Recorded Sex Assigned at Male 04/19/2022 10:14 AM EDT Legal Sex Male 10:14 AM EDT Gender Identity Male 04/19/2022 10:14 AM EDT Sexual Orientation Straight 04/19/2022 10 :14 AM EDT documented as of this encounter Miscellaneous Notes * Telephone Encounter - Farzad Kemp - 05/04/2024 11:29 AM EST TC from pt requesting medication refill. Medications needing refill : oxyCODONE (Roxicodone) 5 MG immediate release tablet To be sent to: [id number] - [place], [place] - [address] [facility] [address] documented in this encounter Plan of Treatment Upcoming Encounters Date Type Department Care Team (Late st Contact Info) Description 07/19/2024 9:00 AM EST Nutrition [facility] DIABETES/NTRN [address] [place] [address] [place] [address] 08/27/2024 10:00 AM EDT Office Visit [facility] ADULT DENTAL [address] [place] [address] Otto Maldonado 09/04/2024 10:00 AM EDT Clinical Support [facility] MED & PEDS [address] [place] [address] Alicia Sanchez, YENI [address] [place], [place] documented as of this encounter Visit Diagnoses Not on filedocumented in this encounter Additional Health Concerns Assessment Noted Time PHQ-9 Depression Total Score: 9 04/12/20 24 1:56 PM EDT documented as of this encounter Care Teams Apparel Machinery Instructor Relationship Specialty Start Date End Date Kirby Mitchell MD [address] [place] [id number] PCP - General Internal Medicine 11/18/19 documented as of this encounter
--- OUTSIDE RECORDS SUMMARY | 2024-07-12 13:48 | XMS_ITS | Encounter Summary ---
Author Organization [employer] Address 75 [facility] [address] [address] Care Team Providers Care Hanging Flags Decorator Name Role Phone Kirby Mitchell MD Primary Care Prov ider Reason for Visit * Reason Onset Date Comments Nurse Triage 03/16/2023 Encounter Details Date Type Department Care Team ([facility] st Contact Info) Description 03/16/2023 Telephone [facility] CHC MED & PEDS [address] [place] [address] Kirby Mitchell MD [address] [place] [address] Nurse Triage Social History Tobacco Use Types Packs/Day Years Used Date Smoking Tobacco: Every Day Cigarettes Passive Smoke Exposure: Never Smokeless Tobacco: Never Alcohol Use Standard Drinks/Week Comments Not Currently 0 (1 standard drink = 0.6 oz pur e alcohol) Depression Answer Date Recorded Patient Health Questionnaire-9 Score 2 02/03/2023 Depression Answer Date Recorded Patient Health Questionnaire-2 Score 2 02/03/2023 Sex and Gender Information Value Date Recorded Sex Assigned at Male 04/19/2022 10:14 AM EDT Legal Sex Male 10:14 AM EDT Gender Identity Male 04/19/2022 10:14 AM EDT Sexual Orientation Straight 04/19/2022 10 :14 AM EDT documented as of this encounter Miscellaneous Notes * Telephone Encounter - Ashly Gauthier RN - 03/16/2023 9:14 AM EDT Triage call Pt reports back pain has become severe since 03/13/23. Pt was unable to get out of bed due to right sided sciatic pain. Pt has taken Motrin 800mg, Oxycodone 5mg, tried biofreeze and obtained a heating pad to apply heat but, nothing is helping. Pt requests to speak with PCP. TIFFANY apt with Dr. Garcia this AM at 1030am. Insurance is verified as active prior to booking. Protocol Used: Back Pain (Adult) Protocol-Based Disposition: See in Office or Video Visit Today Video visit offered and caller accepted Positive Triage Question: * Severe back pain (e.g., excruciating, unable to do any normal activities) and not improved after pain medicine and Care Advice * All higher-acuity triage questions were negative Care Advice Discussed: * Reassurance and Education - Back Pain * Cold or Heat * Sleep * Activity * Pain Medicines * Pain Medicines - Extra Notes and Warnings * Reasons To Call Back - Fever occurs - Numbness or weakness occurs, or bowel/bladder problems - Pain begins to shoot into the leg - Pain persists over 2 weeks - Pain becomes worse - You become worse * Telephone Encounter - Janie Ordonez - 03/16/2023 8:51 AM EDT Symptom: Back Pain - (sciatic pain) Outcome: Schedule an appointment to be seen within 3 days Reason: Pain The caller accepted this outcome documented in this encounter Plan of Treatment Upcoming Encounters Date Type Department Care Team (Late st Contact Info) Description 07/19/2024 9:00 AM EST Nutrition [facility] DIABETES/NTRN [address] [place] [address] Jessica Luther, RD [address] [place] [address] 08/27/2024 10:00 AM EDT Office Visit [facility] ADULT DENTAL [address] [place] [address] Otto Maldonado 09/04/2024 10:00 AM EDT Clinical Support [facility] MED & PEDS [address] [place] [address] Alicia Sanchez, YENI [address] [place] [address] documented as of this encounter Visit Diagnoses Not on filedocumented in this encounter Additional Health Concerns Assessment Noted Time PHQ-9 Depression Total Score: 2 02/04/20 23 11:04 AM EDT documented as of this encounter Care Teams Hanging Flags Decorator Relationship Specialty Start Date End Date Kirby Mitchell MD [address] [place] [address] PCP - General Internal Medicine 11/18/19 documented as of this encounter
--- OUTSIDE RECORDS SUMMARY | 2024-07-12 13:48 | XMS_ITS | Encounter Summary ---
Author Organization [employer] Address [address] [facility] 7[address] [place] [address] Care Team Providers Care Billing Department Supervisor Name Role Phone Kirby Mitchell MD Primary Care Prov ider Reason for Visit * Reason Onset Date Comments Med Refill 05/23/2023 Encounter Details Date Type Department Care Team ([facility] st Contact Info) Description 05/23/2023 Refill [facility] MED & PEDS [address] [place] [address] Doe Maldonado MD [address] [place] [address] Social History Tobacco Use Types Packs/Day Years Used Date Smoking Tobacco: Every Day Cigarettes Passive Smoke Exposure: Never Smokeless Tobacco: Never Alcohol Use Standard Drinks/Week Comments Not Currently 0 (1 standard drink = 0.6 oz pur e alcohol) Depression Answer Date Recorded Patient Health Questionnaire-9 Score 2 02/03/2023 Housing Stability Answer Date Recorded What is [...] AM EDT documented as of this encounter Plan of Treatment Upcoming Encounters Date Type Department Care Team (Late st Contact Info) Description 07/19/2024 9:00 AM EST Nutrition [facility] DIABETES/NTRN [address] [place] [address] Jessica Luther, ROXANA [address] [place] [address] 08/27/2024 10:00 AM EDT Office Visit [facility] ADULT DENTAL [address] [place] [address] Otto Maldonado 09/04/2024 10:00 AM EDT Clinical Support [facility] MED & PEDS [address] [place] [address] Alicia Sanchez, YENI [address] [place] [address] documented as of this encounter Visit Diagnoses Not on filedocumented in this encounter Additional Health Concerns Assessment Noted Time PHQ-9 Depression Total Score: 2 02/04/20 23 11:04 AM EDT documented as of this encounter Care Teams Billing Department Supervisor Relationship Specialty Start Date End Date Kirby Mitchell MD [address] [place] [address] PCP - General Internal Medicine 11/18/19 documented as of this encounter
--- OUTSIDE RECORDS SUMMARY | 2024-07-12 13:48 | XMS_ITS | Encounter Summary ---
Author Organization [employer] Address 75 [facility] 7 [place] [address] Care Team Providers Care House Player Name Role Phone Kirby Mitchell MD Primary Care Prov ider Reason for Visit * Reason Onset Date Comments Med Refill 10/13/2023 Encounter Details Date Type Department Care Team ([facility] st Contact Info) Description 10/13/[address] [facility] MEDICINE [address] [place] [address] Kirby Mitchell MD [address] [place] [address] Med Refill Social History Tobacco Use Types [...] encounter Miscellaneous Notes * Telephone Encounter - Christa Glynn - 10/13/2023 8:36 AM EDT TC from pt requesting medication refill. Medications needing refill : oxyCODONE (Roxicodone) 5 MG immediate release tablet To be sent to: [id number] [place], [place] - [address] [facility] [address] documented in this encounter Plan of Treatment Upcoming Encounters Date Type Department Care Team (Late st Contact Info) Description 07/19/2024 9:00 AM EST Nutrition [facility] DIABETES/NTRN [address] [place] [address] [place] [address] 08/27/2024 10:00 AM EDT Office Visit [facility] ADULT DENTAL [address] [place] [address] Otto Maldonado 09/04/2024 10:00 AM EDT Clinical Support [facility] MED & PEDS [address] [place] [address] Alicia Sanchez, RN [address] [place] [address] documented as of this encounter Visit Diagnoses Not on filedocumented in this encounter Additional Health Concerns Assessment Noted Time PHQ-9 Depression Total Score: 2 02/04/20 23 11:04 AM EDT documented as of this encounter Care Teams House Player Relationship Specialty Start Date End Date Kirby Mitchell MD [address] [place] [address] PCP - General Internal Medicine 11/18/19 documented as of this encounter
--- OUTSIDE RECORDS SUMMARY | 2024-07-12 13:48 | XMS_ITS | Encounter Summary ---
Author Organization [employer] Address [address] [facility] 7 [place] [address] Care Team Providers Care Fish Boning Machine Feeder Name Role Phone Kirby Mitchell MD Primary Care Prov ider Reason for Visit * Reason Onset Date Comments Results 07/28/2023 Encounter Details Date Type Department Care Team (Late st Contact Info) Description 07/28/2023 Telephone [facility] MEDICINE [address] [place] [address] Kirby Mitchell MD [address] [place] [address] Results Social History Tobacco Use Types Packs/Day Years [...] encounter Miscellaneous Notes * Telephone Encounter - Samuel Shirley RN - 07/28/2023 9:56 AM EST Pt requesting lab results that he completed yesterday 07/27/23. Please review and advise. Thanks. * Telephone Encounter - Robin Madrid - 07/28/2023 9:52 AM EST TC from pt requesting call back regarding Results. Type of results: Lab Works Date when done: 07/27 Facility: [facility] documented in this encounter Plan of Treatment Upcoming Encounters Date Type Department Care Team (Late st Contact Info) Description 07/19/2024 9:00 AM EST Nutrition [facility] DIABETES/NTRN [address] [place] [address] Jessica Luther, RD [address] [place] [address] 08/27/2024 10:00 AM EDT Office Visit [facility] ADULT DENTAL [address] [place] [address] Otto Maldonado 09/04/2024 10:00 AM EDT Clinical Support [facility] MED & PEDS [address] [place] [address] Alicia Sanchez, RN [address] [place] [address] documented as of this encounter Visit Diagnoses Not on filedocumented in this encounter Additional Health Concerns Assessment Noted Time PHQ-9 Depression Total Score: 2 02/04/20 23 11:04 AM EDT documented as of this encounter Care Teams Fish Boning Machine Feeder Relationship Specialty Start Date End Date Kirby Mitchell MD [address] [place] [id number] PCP - General Internal Medicine 11/18/19 documented as of this encounter
--- OUTSIDE RECORDS SUMMARY | 2024-07-12 13:48 | XMS_ITS | Encounter Summary ---
Author Organization [employer] Address [address] [facility] 7 [place] [address] Care Team Providers Care Office Cleaner Name Role Phone Kirby Mitchell MD Primary Care Prov ider Reason for Visit * Reason Onset Date Comments Med Refill 03/07/2024 Encounter Details Date Type Department Care Team ([facility] st Contact Info) Description 03/07/2024 Telephone [facility] MEDICINE [address] [place] [address] Kirby Mitchell MD [address] [place] [address] Med Refill Social History Tobacco Use Types [...] encounter Miscellaneous Notes * Telephone Encounter - Terry Dewitt - 03/07/2024 9:40 AM EDT TC from pt requesting medication refill. Medications needing refill: oxyCODONE (Roxicodone) 5 MG immediate release tablet To be sent to: [id number] [place], [place] - [address] [facility] [address] [facility] [address] documented in this encounter Plan of Treatment Upcoming Encounters Date Type Department Care Team (Late st Contact Info) Description 07/19/2024 9:00 AM EST Nutrition [facility] DIABETES/NTRN [address] [place] [address] [place] [address] 08/27/2024 10:00 AM EDT Office Visit [facility] ADULT DENTAL [address] [place] [address] Otto Maldonado 09/04/2024 10:00 AM EDT Clinical Support [facility] MED & PEDS [address] [place] [address] Alicia Sanchez, RN [address] [place] [address] documented as of this encounter Visit Diagnoses Not on filedocumented in this encounter Additional Health Concerns Assessment Noted Time PHQ-9 Depression Total Score: 2 02/04/20 23 11:04 AM EDT documented as of this encounter Care Teams Office Cleaner Relationship Specialty Start Date End Date Kirby Mitchell MD [address] [place] [id number] PCP - General Internal Medicine 11/18/19 documented as of this encounter
--- OUTSIDE RECORDS SUMMARY | 2024-07-12 13:48 | XMS_ITS | Encounter Summary ---
Author Organization [employer] Address [address] [facility] [address] [place] [address] Care Team Providers Care Dental Prosthetist Name Role Phone Kirby Mitchell MD Primary Care Prov ider Encounter Details Date Type Department Care Team (Latest Contact Info) Description 07/10/2024 Travel Social History Tobacco Use Types Packs/Day Years [...] Info) Description 07/19/2024 9:00 AM EST Nutrition [facility] DIABETES/NTRN [address] [place] [address] Jessica Luther, ROXANA [address] [place] [address] 08/27/2024 10:00 AM EDT Office Visit [facility] ADULT DENTAL [address] [place] [address] Otto Maldonado 09/04/2024 10:00 AM EDT Clinical Support [facility] MED & PEDS [address] [place] [address] Alicia Sanchez, RN [address] [place] [address] documented as of this encounter Visit Diagnoses Not on filedocumented in this encounter Additional Health Concerns Assessment Noted Time PHQ-9 Depression Total Score: 9 04/12/20 24 1:56 PM EDT documented as of this encounter Care Teams Dental Prosthetist Relationship Specialty Start Date End Date Kirby Mitchell MD [address] [place] [address] PCP - General Internal Medicine 11/18/19 documented as of this encounter
--- OUTSIDE RECORDS SUMMARY | 2024-07-12 13:48 | XMS_ITS | Encounter Summary ---
Author Organization [employer] Address [address] [facility] 7 [place] [address] Care Team Providers Care Joint Machine Operator Name Role Phone Kirby Mitchell MD Primary Care Prov ider Reason for Visit * Reason Onset Date Comments call back requested 10/20/2023 Encounter Details Date Type Department Care Team ([facility] st Contact Info) Description 10/20/2023 Telephone [facility] MEDICINE [address] [place] [address] Kirby Mitchell MD [address] [place] [address] call back requested Social History Tobacco Use Types Packs/Day Years [...] encounter Miscellaneous Notes * Telephone Encounter - Ifrah Cifuentes - 10/20/2023 10:09 AM EDT Tc from pt requesting a call back from a nurse or PCP, states they contacted [facility] to schedule colonoscopy however pt was advised their last colonoscopy was in 2015 and pt is not due until 2025. Pt stated would like to know why referral was placed. Please contact at [phone] documented in this encounter Plan of Treatment Upcoming Encounters Date Type Department Care Team ([facility] st Contact Info) Description 07/19/2024 9:00 AM EST Nutrition [facility] DIABETES/NTRN [address] [place] [address] [place] [address] 08/27/2024 10:00 AM EDT Office Visit [facility] ADULT DENTAL [address] [place] [address] Otto Maldonado 09/04/2024 10:00 AM EDT Clinical Support [facility] MED & PEDS [address] [place] [address] Alicia Sanchez, RN [address] [place], [place] documented as of this encounter Visit Diagnoses Not on filedocumented in this encounter Additional Health Concerns Assessment Noted Time PHQ-9 Depression Total Score: 2 02/04/20 23 11:04 AM EDT documented as of this encounter Care Teams Joint Machine Operator Relationship Specialty Start Date End Date Kirby Mitchell MD [address] [place] [id number] PCP - General Internal Medicine 11/18/19 documented as of this encounter
--- OUTSIDE RECORDS SUMMARY | 2024-07-12 13:48 | XMS_ITS | Clinical Summary ---
Author Organization [employer] Address [address] [facility] [address] [place] [address] Care Team Providers Care Automobile Rental Representative Name Role Phone Kirby Mitchell MD Primary Care Prov ider Allergies No known active allergies Medications * This document contains information received from the source organization and may not represent a complete record from that organization. acetaminophen (Tylenol 8 Hour) 650 MG ER tablet take 2 tablet by oral route every 8 hours as needed swallowing whole with water. Do not break, crush, dissolve and/or chew. 04/03/20 20 Active Blood Pressure Monitoring (Omron 3 Series BP Monitor) device Check blood pressure on arm as directed 09/11/19 22 Active hydroCHLOROthi azide (HYDRODiuril) 25 MG tablet 05/17/20 22 Active ibuprofen 800 MG tablet TAKE 1 TABLET BY MOUTH THREE TIMES DAILY WITH FOOD 90 tablet 1 10/13/19 24 Active lisinopril 40 MG tablet Take 1 tablet (40 mg) by mouth Once per day. 90 tablet 3 01/02/20 24 025 Active oxyCODONE (Roxicodone) 5 MG immediate release tabletIndicati ons:Loin pain hematuria syndrome Take 1 tablet (5 mg) by mouth if needed in the morning and at bedtime for moderate pain. 56 tablet 01/05/20 24 Active tamsulosin (Flomax) 0.4 MG 24 hr capsule TAKE 1 CAPSULE BY MOUTH EVERY DAY 30 MINUTES AFTER THE SAME MEAL 90 capsule 3 02/09/20 24 Active diclofenac (Voltaren) 75 MG EC tablet Take 1 tablet (75 mg) by mouth 2 times daily. Do not crush, chew, or split. 60 tablet 03/30/20 24 Active QUEtiapine (SEROquel) 50 MG tablet Take 1 tablet (50 mg) by mouth at bedtime. 30 tablet 04/09/20 24 Active cyclobenzaprin e (Flexeril) 10 MG tablet Take 1 tablet (10 mg) by mouth 3 times daily for 10 days. 30 tablet 04/09/20 24 Active atorvastatin (Lipitor) 80 MG tablet Take 1 tablet (80 mg) by mouth Once per day. 90 tablet 3 06/05/20 24 025 Active oxyCODONE (Roxicodone) 5 MG immediate release tabletIndicati ons:Loin pain hematuria syndrome Take 1 tablet (5 mg) by mouth if needed in the morning and at bedtime for moderate pain. 56 tablet 06/28/19 25 Active oxyCODONE (Roxicodone) 5 MG immediate release tabletIndicati ons:Loin pain hematuria syndrome Take 1 tablet (5 mg) by mouth if needed in the morning and at bedtime for moderate pain. 56 tablet 05/31/20 24 025 Discontinued(Re order (will not trigger notification to Pharmacy)) Active Problems Problem Noted Date Diagnosed Date Low testosterone 07/10/2024 Assessment & Plan (07/10/2024 9:08 AM EST): Will place new testosterone order if low again, will refer to urology for treatment Neck pain 07/10/2024 Assessment & Plan (07/10/2024 9:08 AM EST): Will place neck xray order, denied trauma, will also refer to chiropractor Class 1 obesity due to exces s calories with serious comorbidity and body mass index (BMI) of 34.0 to 34.9 in adult 06/05/2024 Assessment & Plan (06/05/2024 9:56 AM EST): Will refer to slitting machine operator helper Low libido 06/05/2024 Assessment & Plan (06/05/2024 9:58 AM EST): Low libido/fatigue, will order testosterone, will call with results 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 Mass of scrotum 01/02/2024 Assessment & Plan (01/02/2024 9:24 AM EDT): Patient refers he felt a mass in between his scrotum that is tender, has not increased in size, no trauma, no genital lesion or discharge/dysuria, will send a scrotal ultrasound Mixed hyperlipidemia 09/26/2023 Assessment & Plan (06/05/2024 9:55 AM EST): Not at target, will increase atorvastatin to 80mg, continue diet and exercise as recommended, follow up in 3 months Assessment & Plan (09/26/2023 2:54 PM EDT): Will order new labs ofr guidance of therapy, continue atorvastatin 40mg for now, no side effects reported Primary hypertension 06/04/2023 Assessment & Plan (04/09/2024 3:37 PM EDT): Slightly elevated, but he is on pain today, refers at home remains below 130/80, will leave current therapy, continue low sodium diet and exercise as tolerated, follow up in 3 months Assessment & Plan (01/02/2024 9:22 AM EDT): Not controlled will increase lisinopril to 40mg, keep bp log, target <140/90, will follow up in 1 month Assessment & Plan (09/26/2023 2:53 PM EDT): Controlled, on hydrochlorothiazide 25 and lisinopril 20, no changes will be made, continue same treatment, continue low sodium diet Assessment & Plan (06/04/2023 12:19 PM EST): Not controlled, results as follow 136/93-158/95-146/86, and previous results have maintained above 140/90, will increase lisinopril to 20mg, Screening for colon cancer 06/04/2023 Assessment & Plan (06/04/2023 12:21 PM EST): Will place gi referral for screening colon cancer Acute right-sided low back pain with right-sided sciatica 03/16/2023 Assessment & Plan (03/16/2023 1:19 PM EDT): Patient denied trauma, symtoms started last Tuesday, no neurologic deficit, MRI done on 2020, not interested in pain management. Will provide prednisone for 5 days and will refer to PT, he will let me know if not improving and will decide if he want pain management referral. 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 Date Type Department Care Team Description 07/10/2024 8:45 AM EST Telemedicine [facility] [address] [place] [address] Kirby Mitchell MD Low testosterone (Primary Dx); Neck pain; Dietary counseling; Exercise counseling 07/10/2024 Travel 06/29/2024 9:00 AM EST Office Visit [facility] [address] [place] [address] Regina Holden DDS 06/28/2024 Telephone [facility] [address] [place] [address] Kirby Mitchell MD Med Refill 06/07/2024 10:00 AM EST Clinical Support [facility] [address] [place] [address] Alicia Sanchez RN Back pain, unspecified back location, unspecified back pain laterality, unspecified chronicity 06/07/2024 Travel 06/05/2024 9:30 AM EST Telemedicine [facility] [address] [place] [address] Kirby Mitchell MD Mixed hyperlipidemia (Primary Dx); Class 1 obesity due to excess calories with serious comorbidity and body mass index (BMI) of 34.0 to 34.9 in adult; Low libido 06/05/2024 Travel 06/04/2024 Telephone [facility] [address] [place] [address] Kirby Mitchell MD 05/31/2024 Refill [facility] [address] [place] [address] Kirby Mitchell MD Loin pain hematuria syndrome 05/23/2024 Telephone [facility] [address] [place] [address] Kirby Mitchell MD 05/16/2024 Telephone [facility] [address] [place] [address] Miya Madrid [place] 05/04/2024 Telephone [facility] [address] [place] [address] Kirby Mitchell MD Med Refill 05/03/2024 Refill [facility] [address] [place], [place] [phone] Kirby Mitchell MD Loin pain hematuria syndrome 05/02/2024 9:00 AM EST Office Visit [facility] [address] [place] [address] Regina Holden DDS 04/27/2024 10:00 AM EST Office Visit [facility] [address] [place] [address] Regina Holden DDS 04/12/2024 Telephone [facility] [address] [place], [place] [phone] Kirby Mitchell MD from Last 3 Months Immunizations Name Administration Dates Next Due INFLUENZA INJECTABLE QUADRIV ALANT CCIIV4 MDCK Multi-dose vial 04/07/2017 Mitesh SARS-CoV-2 Vaccination 09/27/2020 Social History Tobacco Use Types Packs/Day Years [...] Orientation Straight 04/19/2022 10 :14 AM EDT Last Filed Vital Signs Vital Sign Reading Time Taken Comments Blood Pressure 126/85 06/29/2024 8:59 AM EST Pulse 100 04/09/2024 11:19 AM EDT Temperature 37.1 ??C (98.7 ??F) 04/09/2024 11:19 AM E DT Respiratory Rate 20 04/09/2024 11:19 AM EDT Oxygen Saturation 98% 03/30/2024 3:32 PM EDT Inhaled Oxygen Concentration - - Weight 115 kg (254 lb) 04/09/2024 11:19 AM EDT Height 182.9 cm (6') 04/09/2024 11:19 AM EDT Body Mass Index 34.45 04/09/2024 11:19 AM EDT Plan of Treatment Upcoming Encounters Date Type Department Care Team (Late st Contact Info) Description 07/19/2024 9:00 AM EST Nutrition [facility] [address] [place] [address] Jessica Luther, ROXANA [address] [place] [address] 08/27/2024 10:00 AM EDT Office Visit [facility] [address] [place] [address] Otto Maldonado 09/04/2024 10:00 AM EDT Clinical Support [facility] [address] [place] [address] Alicia Sanchez, RN [address] [place] [address] Health Maintenance Due Date Last Done Comments CT Colonography 1974 Colonoscopy 1974 Colorectal Cancer Screening 1974 FIT DNA/Cologuard 1974 FIT 1974 FOBT 1974 Sigmoidoscopy 1974 Family Planning (PISQ) 1989 DTaP/Tdap/Td Vaccines (1 - Tdap) 1993 Hepatitis B Vaccines (1 of 3 - 19+ 3-dose series) 1993 SDOH Screening 02/04/2024 02/03/2023 COVID-19 Vaccine (2 - season) 2024 09/27/2020 Influenza Vaccine (#1) 2024 04/07/2017 Dental Oral Exam 02/27/2024 08/26/2023, 01/31/2023 Zoster Vaccines (1 of 2) 2024 Dental Prophylaxis 08/28/2024 02/28/2024, 0 08/26/2023, 01/31/2023 Diabetes: Hemoglobin A1C 09/04/2024 09/05/2023 Depression Monitoring (PHQ-9) 10/11/2024 04/12/2024, 04/12/2024 Dental X-Ray: Bitewings 01/05/2025 01/05/2024, 08/25 Depression Screening 04/12/2025 04/12/2024, 04/12/20 Tobacco Screening 06/29/2025 06/29/2024 Alcohol/Substance Use Screening 07/10/2025 07/10/2024 Dental X-Ray: Full Mouth 08/26/2026 08/26/2023 Lipid Panel 04/12/2029 04/12/2024, 12/18, 09/05/2023, Additional history exists RSV Patients and Patients Aged 60 years or older (1 - 1-dose 75+ series) 2049 HIV Screening Completed 09/04/2021 Hepatitis C Screening Completed 09/04/2021 HIB Vaccines Aged Out No longer eligi [...] patient's age to complete this topic Meningococcal Vaccine Aged Out No jose j aakash eligible based on patient's age to complete this topic Pneumococcal Vaccine: Pediatrics (0 to 5 Years) and At-Risk Patients (6 to 64 Years) Aged Out No longer eligible based on patient's age to complete this topic RSV under 20 months Aged Out No longe r eligible based on patient's age to complete this topic Rotavirus Vaccines Aged Out No longer eligible based on patient's age to complete this topic Procedures Procedure Name Priority Date/Time Associated Diagnosis Comments 15 MO RESTORATIVE - RESIN-BASED COMPOSITE RESTORATIONS - DIRECT - RESIN-BASED COMPOSITE - TWO SURFACES, POSTERIOR Routine 06/29/2024 9:00 AM EST TESTOSTERONE, FREE (DIALYSIS) AND TOTAL,MS Routine 06/07/2024 10:25 AM EST Low libido POCT DARNELL-14 URINE DRUG SCREEN Routine 06/07/2024 10:20 AM EST Back pain, unspecified back location, unspecified back pain laterality, unspecified chronicity 14 LL(V)O RESTORATIVE - RESIN-BASED COMPOSITE RESTORATIONS - DIRECT - RESIN-BASED COMPOSITE - TWO SURFACES, POSTERIOR Routine 05/02/2024 9:00 AM EST 4 DO RESTORATIVE - RESIN-BASED COMPOSITE RESTORATIONS - DIRECT - RESIN-BASED COMPOSITE - TWO SURFACES, POSTERIOR Routine 04/27/2024 10:00 AM EST LIPID PANEL, STANDARD Routine 04/12/2024 2:12 PM EDT Mixed hyperlipidemia COMPREHENSIVE METABOLIC PANEL Routine 04/12/2024 2:12 PM EDT Mixed hyperlipidemia PROPHYLAXIS - ADULT Routine 02/28/2024 1 0:00 AM EDT BITEWING - SINGLE RADIOGRAPHIC IMAGE Routine 01/05/2024 11:00 AM EDT HEMOGLOBIN A1C Routine 09/05/2023 9:25 AM EDT Elevated glucose DIAGNOSTIC - DIAGNOSTIC IMAGING - INTRAORAL - COMPREHENSIVE SERIES OF RADIOGRAPHIC IMAGES Routine 08/26/2023 10:00 AM EST PERIODIC ORAL EVALUATION - ESTABLISHED PATIENT Routine 08/26/2023 10:00 AM EST ZZZ HISTORICAL HEPATITIS C AB W/REFL TO HCV RNA, QN, PCR Routine 09/04/2021 10:16 AM EDT HIV 1/2 ANTIGEN/ANTIBODY, FOURTH GENERATION W/RFL Routine 09/04/2021 10:16 AM EDT from Last 3 Months or Most Recently Relevant to Health Maintenance Results * (ABNORMAL) Testosterone, Free (Dialysis) And Total, MS (06/07/2024 10:25 AM EST) Testosterone, Total 185(A) 250 - 1100 ng/dL [facility] Comment:For additional infor mation, please refer tohttp://education.[employer]/faq/ScmocDhzdwmxcqizlQFRTRHNJZ028(This link is being provided for informational/educational purposes only.)This test was developed and its analytical performancecharacteristics have been determined by [employer] [place], [place]. It hasnot been cleared or approved by the U.S. Food and DrugAdministration. This assay has been validated pursuantto the CLIA regulations and is used for clinicalpurposes. Testosterone, Free 31.1(A) 35.0 - 155.0 pg/mL [facility] Comment:This test was develo ped and its analytical performancecharacteristics have been determined by [employer] [place] It hasnot been cleared or approved by the U.S. Food and DrugAdministration. This assay has been validated pursuantto the CLIA regulations and is used for clinicalpurposes.THIS TEST WAS PERFORMED AT:[employer] [id number] [place] [id number] SANFORD MD,PHD Blood Venous blood specimen / Unknown 06/07/2024 10:25 AM EST 06/07/2024 2:22 PM EST us Kirby Trinidad MD LAB BLOOD ORDERABL ES Final Result [facility] [address] [place] [address] [phone] * POCT DARNELL-14 Urine Drug Screen (06/07/2024 10:20 AM EST) THC Positive Oxycodone Screen, Urine Positive Urine Urine specimen obtained by clean catch procedure / Unknown 06/07/2024 10:20 AM EST Narrative Alicia Sanchez RN - 06/07/2024 10:20 AM EST Lot# [id number] Exp: 05-26-25 Kirby Trinidad MD POINT OF CARE TEST ENTER/EDIT ORDERABLES Final Result * (ABNORMAL) Lipid Panel, Standard (04/12/2024 2:12 PM EDT) Triglycerides 286(H) <150 mg/dL [facility] Comment:Desirable Triglyceri de: less than 150 mg/dLBorderline High Triglyceride 150-199 mg/dLHigh Triglyceride: 200-499 mg/dLVery High Triglyceride: greater than or equal to 5OO mg/dL Cholesterol 247(H) <200 mg/dL [facility] Comment:Desirable Cholestero l: less than 200 mg/dLBorderline High Cholesterol: 200-239 mg/dLHigh Cholesterol: greater than 239 mg/dL LDL Cholesterol Calculated 144(H) <100 mg/dL [facility] Comment:Desirable LDL: less than 100 mg/dLNear Optimal/Above Optimal LDL: 110- 129 mg/dLBorderline High LDL: 130-159 mg/dLHigh LDL: 160-189 mg/dLVery High LDL: greater than or equal to 190 mg/dL HDL Cholesterol 46 >40 mg/dL [facility] Comment:Desirable HDL: great er than 40 mg/dL Note: This HDL assay may give artificially low results in patients with liver disease. Blood Venous blood specimen / Unknown 04/12/2024 2:12 PM EDT 04/12/2024 5:37 PM EDT Kirby Trinidad MD LAB BLOOD ORDERABL ES Final Result [facility] [address] [place] [address] [phone] * (ABNORMAL) Comprehensive Metabolic Panel (04/12/2024 2:12 PM EDT) Sodium 140 135 - 145 mmol/L [facility] Potassium 3.6 3.3 - 5.1 mmol/L [facility] Chloride 105 96 - 108 mmol/L [facility] Carbon Dioxide 25 22 - 29 mmol/L [facility] Anion Gap 14 12 - 20 [facility] Urea Nitrogen (BUN) 18(H) 9 - 16 mg/dL [facility] Creatinine, Serum 1.00 0.5 - 1.4 mg/dL [facility] Estimated Glomerular Filt Rate >60 [facility] Comment:NOTE: For -Am erican individuals, multiply the result by 1.210.Chronic Kidney Disease: Estimated GFR < 60 mL/min/1.04o2Traygt Kidney Disease: Estimated GFR < 15 mL/min/1.73m2 Glucose 110 60 - 115 mg/dL [facility] Calcium 10.1 8.4 - 10.2 mg/dL [facility] Bilirubin, Total 0.4 0.0 - 1.0 mg/dL [facility] Aspartate Amino Transferase 33 5 - 37 U/L [facility] Alanine Aminotransferase 56(H) 0 - 40 U/L [facility] Total Protein 8.2(H) 6.5 - 8.0 g/dL [facility] Albumin Level 4.4 3.5 - 5.0 g/dL [facility] Alkaline Phosphatase 85 39 - 117 U/L [facility] Blood Venous blood specimen / Unknown 04/12/2024 2:12 PM EDT 04/12/2024 5:37 PM EDT us Kirby Trinidad MD LAB BLOOD ORDERABL ES Final Result [facility] [address] [place] [address] [phone] * Hemoglobin A1c (09/05/2023 9:25 AM EDT) Hemoglobin A1c 5.7 <6.0 % [facility] Comment:Hemoglobin A1C Refer ence Range Adults: 4.8 - 6.0 % Non diabetic: < 6.0 % Goal: < 7.0 %Additional Action Suggested: > 8.0 %Note: Hemoglobin A1c results are invalid for patients with abnormal amounts of HbF. Blood transfusions may impact the HbA1c concentration in the patient sample. Estimated Average Glucose 117 mg/dL [facility] Comment:eAG = Estimated ave rage glucose which is %A1C expressed asaverage glucose, using the formula of the M6P-JwwlcmvEhrtruu Glucose study (ADAG), Diabetes Care, Vol.31,#8,2007 Blood Venous blood specimen / Unknown 09/05/2023 9:25 AM EDT 09/05/2023 2:00 PM EDT Kirby Trinidad MD LAB BLOOD ORDERABL ES Final Result [facility] [address] [place] [phone] * HEPATITIS C AB W/REFL TO HCV RNA, QN, PCR (09/04/2021 10:16 AM EDT) HEPATITIS C ANTIBODY NON-REACT JERED NON-REACT JERED [facility] INDEX 0.02 <1.00 [facility] Comment: ?? HCV antibody was non-reactive. There is no laboratory ?? evidence of HCV infection. ?? In most cases, no further action is required. However, if recent HCV exposure is suspected, a test for HCV RNA (test code 52756) is suggested. ?? For additional information please refer to http://education.[employer]/faq/UGF26x5 (This link is being provided for informational/ educational purposes only.) ?? 09/04/2021 10:1 6 AM EDT Kirby Trinidad MD HISTORICAL/NON ORD ERABLE LABS Final Result Performing Organization Address [facility] Co de Phone Number [facility] [address] * HIV 1/2 ANTIGEN/ANTIBODY,FOURTH GENERATION W/RFL (09/04/2021 10:16 AM EDT) HIV-1/2 ANTIGEN AND ANTIBODIES, 4TH GENERATION W/ REFLEX NON-REACT JERED NON-REACT JERED [facility] Comment: HIV-1 antigen and HIV-1/HIV-2 antibodies were not detected. There is no laboratory evidence of HIV infection. ?? PLEASE NOTE: This information has been disclosed to you from records whose confidentiality may be protected by state law. ??If your state requires such protection, then the state law prohibits you from making any further disclosure of the information without the specific written consent of the person to whom it pertains, or as otherwise permitted by law. A general authorization for the release of medical or other information is NOT sufficient for this purpose. ? For additional information please refer to http://education.[employer]/faq/ZNM487 (This link is being provided for informational/ educational purposes only.) ? The performance of this assay has not been clinically validated in patients less than 2 years old. ?? 09/04/2021 10:1 6 AM EDT Kirby Trinidad MD LAB BLOOD ORDERABL ES Final Result Performing Organization Address [facility] de Phone Number [facility] [address] from Last 3 Months or Most Recently Relevant to Health Maintenance Insurance MEDICARE [facility] STANDARD DENTAL-[facility] MEDICAID STAND ADULT Care Teams Automobile Rental Representative Relationship Specialty Start Date End Date Kirby Mitchell MD [address] [place] [address] [phone] PCP - General Internal Medicine 11/18/19
--- OUTSIDE RECORDS SUMMARY | 2024-07-12 13:48 | XMS_ITS | Encounter Summary ---
Author Organization [employer] Address [address] [place] [address] Care Team Providers Care Associate Trainer Name Role Phone Kirby Mitchell MD Primary Care Prov ider Reason for Visit * Reason Onset Date Comments Med Refill 06/28/2024 Encounter Details Date Type Department Care Team ([facility] st Contact Info) Description 06/28/2024 Telephone [facility] MED[facility] [address] [place] [address] Kirby Mitchell MD [address] [place] [address] Med Refill Social History Tobacco Use Types [...] encounter Miscellaneous Notes * Telephone Encounter - Norma Moscoso - 06/28/2024 11:43 AM EST TC from pt requesting medication refill. Medications needing refill : oxyCODONE (Roxicodone) 5 MG immediate release tablet To be sent to: [id number] - [place], [place] - [address] documented in this encounter Plan of Treatment Upcoming Encounters Date Type Department Care Team (Late st Contact Info) Description 07/19/2024 9:00 AM EST Nutrition [facility] [address] [place] [address] Jessica Luther, RD [address] [place] [address] 08/27/2024 10:00 AM EDT Office Visit [facility] [address] [place] [address] Otto Maldonado 09/04/2024 10:00 AM EDT Clinical Support [facility] [address] [place] [address] Alicia Sanchez, RN [address] [place], [place] documented as of this encounter Visit Diagnoses Diagnosis Loin pain hematuria syndrome documented in this encounter Additional Health Concerns Assessment Noted Time PHQ-9 Depression Total Score: 9 04/12/20 24 1:56 PM EDT documented as of this encounter Care Teams Associate Trainer Relationship Specialty Start Date End Date Kirby Mitchell MD [address] [place] [phone] PCP - General Internal Medicine 11/18/19 documented as of this encounter
--- OUTSIDE RECORDS SUMMARY | 2024-07-12 13:48 | XMS_ITS | Encounter Summary ---
Author Organization [employer] Address [address] [facility] 7t [place] [address] Care Team Providers Care Credit Risk Analytics Manager Name Role Phone Kirby Mitchell MD Primary Care Prov ider Reason for Visit * Reason Comments Med Refill Encounter Details Date Type Department Care Team (Late st Contact Info) Description 05/24/[address] [facility] MEDICINE [address] [place] [address] Kirby Mitchell MD 505 [place] [address] Social History Tobacco Use Types Packs/Day Years [...] encounter Miscellaneous Notes * Telephone Encounter - Keke Gonzalez - 06/06/2023 9:29 AM EST Zak Garcia, referral for gastro will require chart notes. Thank you. documented in this encounter Plan of Treatment Upcoming Encounters Date Type Department Care Team (Late st Contact Info) Description 07/19/2024 9:00 AM EST Nutrition [facility] DIABETES/NTRN [address] [place] [address] [place] [address] 08/27/2024 10:00 AM EDT Office Visit [facility] ADULT DENTAL [address] [place] [address] Otto Maldonado 09/04/2024 10:00 AM EDT Clinical Support [facility] MED & PEDS [address] [place] [address] Alicia Sanchez, YENI 505 [place] [address] documented as of this encounter Visit Diagnoses Not on filedocumented in this encounter Additional Health Concerns Assessment Noted Time PHQ-9 Depression Total Score: 2 02/04/20 23 11:04 AM EDT documented as of this encounter Care Teams Credit Risk Analytics Manager Relationship Specialty Start Date End Date Kirby Mitchell MD 505 [place] [address] PCP - General Internal Medicine 11/18/19 documented as of this encounter
--- OUTSIDE RECORDS SUMMARY | 2024-07-12 13:48 | XMS_ITS | Encounter Summary ---
Author Organization [employer] Address 75 [facility] 7t [place] [address] Care Team Providers Care Delinquent Account Clerk Name Role Phone Kirby Mitchell MD Primary Care Prov ider Encounter Details Date Type Department Care Team (Late st Contact Info) Description 01/04/2024 Orders Only [facility] CHC MED & PEDS [address] [place], [place] [phone] Kirby Mitchell MD [address] [place] [address] Social History Tobacco Use Types Packs/Day Years [...] Description 07/19/2024 9:00 AM EST Nutrition [facility] DIABETES/NTRN [address] [place] [address] Jessica Luther, RD 230 [place] [address] 08/27/2024 10:00 AM EDT Office Visit [facility] ADULT DENTAL [address] [place] [address] Otto Maldonado 09/04/2024 10:00 AM EDT Clinical Support [facility] MED & PEDS [address] [place] [address] Alicia Sanchez, YENI 505 [place] [address] documented as of this encounter Visit Diagnoses Not on filedocumented in this encounter Additional Health Concerns Assessment Noted Time PHQ-9 Depression Total Score: 2 02/04/20 23 11:04 AM EDT documented as of this encounter Care Teams Delinquent Account Clerk Relationship Specialty Start Date End Date Kirby Mitchell MD 505 [place] [address] PCP - General Internal Medicine 11/18/19 documented as of this encounter
--- OUTSIDE RECORDS SUMMARY | 2024-07-12 13:48 | XMS_ITS | Encounter Summary ---
Author Organization [employer] Address [address] [facility] 7 [place] [address] Care Team Providers Care Adjunct Faculty For Medical Terminology Name Role Phone Kirby Mitchell MD Primary Care Prov ider Reason for Visit * Reason Onset Date Comments Med Refill 04/04/2024 Encounter Details Date Type Department Care Team ([facility] st Contact Info) Description 04/04/2024 Telephone [facility] MEDICINE [address] [place] [address] Kirby Mitchell MD [address] [place] [address] Med Refill Social History Tobacco Use Types [...] * Telephone Encounter - Farzad Kemp - 04/04/2024 10:07 AM EDT TC from pt requesting medication refill. Medications needing refill : oxyCODONE (Roxicodone) 5 MG immediate release tablet To be sent to: [id number] [place], [place] - [address] [facility] [address] documented in this encounter Plan of Treatment Upcoming Encounters Date Type Department Care Team ([facility] st Contact Info) Description 07/19/2024 9:00 AM EST Nutrition [facility] DIABETES/NTRN [address] [place] [address] [place] [address] 08/27/2024 10:00 AM EDT Office Visit [facility] ADULT DENTAL 505 [place] [address] Otto Maldonado 09/04/2024 10:00 AM EDT Clinical Support [facility] MED & PEDS [address] [place] [address] Alicia Sanchez, RN 505 [place] [address] documented as of this encounter Visit Diagnoses Not on filedocumented in this encounter Additional Health Concerns Assessment Noted Time PHQ-9 Depression Total Score: 2 02/04/20 23 11:04 AM EDT documented as of this encounter Care Teams Adjunct Faculty For Medical Terminology Relationship Specialty Start Date End Date Kirby Mitchell MD [address] [place] [address] PCP - General Internal Medicine 11/18/19 documented as of this encounter
--- OUTSIDE RECORDS SUMMARY | 2024-07-12 13:48 | XMS_ITS | Encounter Summary ---
Author Organization [employer] Address [address] [facility] 7 [place] [address] Care Team Providers Care Manager Of Medical Name Role Phone Kirby Mitchell MD Primary Care Prov ider Reason for Visit * Reason Onset Date Comments Med Refill 07/12/2023 Encounter Details Date Type Department Care Team ([facility] st Contact Info) Description 07/12/2023 Telephone [facility] MEDICINE [address] [place] [address] Kirby Mitchell MD 505 [place] [address] Med Refill Social History Tobacco Use Types [...] encounter Miscellaneous Notes * Telephone Encounter - Robin Madrid - 07/12/2023 9:18 AM EST TC from pt requesting medication refill. Medications needing refill : oxyCODONE (Roxicodone) 5 MG immediate release tablet To be sent to: [id number] [place], [place] - [address] [facility] [address] [facility] [address] Patient calling to request the status of the medication however ad copy writer did see on the the status ofthe medication message says Transmission to pharmacy failed and the pharmacy confirmed has not received the script documented in this encounter Plan of Treatment Upcoming Encounters Date Type Department Care Team (Late st Contact Info) Description 07/19/2024 9:00 AM EST Nutrition [facility] DIABETES/NTRN 505 [place] [address] Jessica Luther, RD 230 [place] [address] 08/27/2024 10:00 AM EDT Office Visit [facility] ADULT DENTAL 505 [place] [address] Otto Maldonado 09/04/2024 10:00 AM EDT Clinical Support [facility] MED & PEDS [address] [place] [address] Alicia Sanchez, RN 505 [place], [place] documented as of this encounter Visit Diagnoses Not on filedocumented in this encounter Additional Health Concerns Assessment Noted Time PHQ-9 Depression Total Score: 2 02/04/20 23 11:04 AM EDT documented as of this encounter Care Teams Manager Of Medical Relationship Specialty Start Date End Date Kirby Mitchell MD [address] [place] [address] PCP - General Internal Medicine 11/18/19 documented as of this encounter
--- OUTSIDE RECORDS SUMMARY | 2024-07-12 13:48 | XMS_ITS | Encounter Summary ---
Author Organization [employer] Address [address] [facility] [address] 7t [place] [address] Care Team Providers Care Table Hand Name Role Phone Kirby Mitchell MD Primary Care Prov ider Encounter Details Date Type Department Care Team (Late st Contact Info) Description 09/28/2023 Orders Only [facility] CHC MED & PEDS [address] [place] [address] ProviderLoraine MD Social History Tobacco Use Types Packs/Day Years Used Date Smoking Tobacco: Former Cigarettes Passive Smoke Exposure: Never Smokeless Tobacco: Never Alcohol Use Standard Drinks/Week Comments Not Currently 0 (1 standard drink = 0.6 oz pur e alcohol) Depression Answer Date Recorded Patient Health Questionnaire-9 Score 2 02/03/2023 Housing Stability Answer Date Recorded What is your housing situation today? I have shonyecenia stringer 04/14/[address] you [...] Info) Description 07/19/2024 9:00 AM EST Nutrition [facility] DIABETES/NTRN [address] [place] [address] [place], [place] [phone] 08/27/2024 10:00 AM EDT Office Visit [facility] ADULT DENTAL [address] [place] [address] Otto Maldonado 09/04/2024 10:00 AM EDT Clinical Support [facility] MED & PEDS 505 [place] [address] Alicia Sanchez RN 505 [place] [address] documented as of this encounter Procedures Procedure Name Priority Date/Time Associated Diagnosis Comments EMG Routine 09/27/2023 11:10 AM EDT documented in this encounter Results * EMG (09/27/2023 11:10 AM EDT) us Historical Provider NEUROLOGY ORDERABLES Kaylah l Result documented in this encounter Visit Diagnoses Not on filedocumented in this encounter Additional Health Concerns Assessment Noted Time PHQ-9 Depression Total Score: 2 02/04/20 23 11:04 AM EDT documented as of this encounter Care Teams Table Hand Relationship Specialty Start Date End Date Kirby Mitchell MD [address] [place] [address] PCP - General Internal Medicine 11/18/19 documented as of this encounter
--- OUTSIDE RECORDS SUMMARY | 2024-07-12 13:48 | XMS_ITS | Encounter Summary ---
Author Organization [employer] Address [address] [place] [address] [facility] [place] [address] Care Team Providers Care Lithographic Stripper Name Role Phone Kirby Mitchell MD Primary Care Prov ider Reason for Referral * Consultation (Routine) - Authorized Specialty Diagnoses / Procedures Referred By Contfabián t Referred To Contact Nutrition Diagnoses Class 1 obesity due to excess calories with serious comorbidity and body mass index (BMI) of 34.0 to 34.9 in adult Kirby Mitchell MD [address] [place] [address] Phone: tel: fax: Referral ID Status Reason Start Date Expiration Date Visits Requested Visits Authorized [id number] Authorized Specialty Services Required 4 06/05/2025 1 1 Encounter Details Date Type Department Care Team (Latest Contact Info) Description 06/05/2024 9:30 AM EST Telemedicine [facility] CHC MED & PEDS [address] [place] [address] Kirby Mitchell MD 505 [place] [address] Mixed hyperlipidemia (Primary Dx); Class 1 obesity due to excess calories with serious comorbidity and body mass index (BMI) of 34.0 to 34.9 in adult; Low libido Social History Tobacco Use Types Packs/Day Years [...] the past 12 months, has t he [employer], gas, oil or water [employer] threatened to shut off services in your [...] Progress Notes * Kirby Trinidad MD - 06/05/2024 9:30 AM EST Subjective Patient ID: Bhanu Marc is a 48 y.o. male who presents for No chief complaint on file.. Hyperlipidemia This is a chronic problem. Exacerbating diseases include obesity. He has no history of chronic renal disease, diabetes, hypothyroidism, liver disease or nephrotic syndrome. Pertinent negatives include no chest pain, focal sensory loss, focal weakness, leg pain, myalgias or shortness of breath. Review of Systems Respiratory: Negative for shortness of breath. Cardiovascular: Negative for chest pain. Musculoskeletal: Negative for myalgias. Neurological: Negative for focal weakness. Objective Physical Exam Assessment/Plan Problem List Items Addressed This Visit Mixed hyperlipidemia - Primary Not at target, will increase atorvastatin to 80mg, continue diet and exercise as recommended, follow up in 3 months Class 1 obesity due to excess calories with serious comorbidity and body mass index (BMI) of 34.0 to 34.9 in adult Will refer to care partner Relevant Orders Referral to Nutrition Services Low libido Low libido/fatigue, will order testosterone, will call with results Relevant Orders Testosterone, Free (Dialysis) And Total, MS documented in this encounter Miscellaneous Notes * Assessment & Plan Note - Kirby Trinidad MD - 06/05/2024 9:58 AM ESTAssociated Problem(s): Low libido Low libido/fatigue, will order testosterone, will call with results * Assessment & Plan Note - Kirby Trinidad MD - 06/05/2024 9:56 AM ESTAssociated Problem(s): Class 1 obesity due to excess calories with serious comorbidity and body mass index (BMI) of 34.0 to 34.9 in adult Will refer to care partner * Assessment & Plan Note - Kirby Trinidad MD - 06/05/2024 9:55 AM ESTAssociated Problem(s): Mixed hyperlipidemia Not at target, will increase atorvastatin to 80mg, continue diet and exercise as recommended, follow up in 3 months documented in this encounter Plan of Treatment Upcoming Encounters Date Type Department Care Team (Late st Contact Info) Description 07/19/2024 9:00 AM EST Nutrition [facility] DIABETES/NTRN [address] [place] [address] Jessica Luther, RD [address] [facility] [place] [address] 08/27/2024 10:00 AM EDT Office Visit [facility] ADULT DENTAL [address] [place] [address] PbjaysonKiko lemusOtto 09/04/2024 10:00 AM EDT Clinical Support [facility] MED & PEDS [address] [place], [place] [phone] Alicia Sanchez RN [address] [facility] [place], [place] Scheduled Referrals Name Type Priority Associated Diagnoses Orde r Schedule Referral to Nutrition Services Outpatient Referral Routine Class 1 obesity due to excess calories with serious comorbidity and body mass index (BMI) of 34.0 to 34.9 in adult Expected: 06/05/2024 (Approximate), Expires: 06/05/2025 documented as of this encounter Procedures Procedure Name Priority Date/Time Associated Diagnosis Comments TESTOSTERONE, FREE (DIALYSIS) AND TOTAL,MS Routine 06/07/2024 10:25 AM EST Low libido documented in this encounter Results * (ABNORMAL) Testosterone, Free (Dialysis) And Total, MS (06/07/2024 10:25 AM EST) Testosterone, Total 185(A) 250 - 1100 ng/dL [facility] Comment:For additional infor jay, please refer tohttp://education.[employer]/faq/ItdelBvotbgyprwvhXSEIHHBAE476(This link is being provided for informational/educational purposes only.)This test was developed and its analytical performancecharacteristics have been determined by [facility] [place], [place]. It hasnot been cleared or approved by the U.S. Food and DrugAdministration. This assay has been validated pursuantto the CLIA regulations and is used for clinicalpurposes. Testosterone, Free 31.1(A) 35.0 - 155.0 pg/mL [facility] Comment:This test was develo ped and its analytical performancecharacteristics have been determined by [facility] [place], [place]. It hasnot been cleared or approved by the U.S. Food and DrugAdministration. This assay has been validated pursuantto the CLIA regulations and is used for clinicalpurposes.THIS TEST WAS PERFORMED AT:[employer]/[facility] [place] [address]PZLDXEKAMY SANFORD MD,PHD Blood Venous blood specimen / Unknown 06/07/2024 10:25 AM EST 06/07/2024 2:22 PM EST us Kirby Trinidad MD LAB BLOOD ORDERABL ES Final Result [facility] [address] [place] [phone] documented in this encounter Visit Diagnoses Diagnosis Mixed hyperlipidemia- Primary Class 1 obesity due to excess calories with serious comorbidity and body mass index (BMI) of 34.0 to 34.9 in adult Low libido documented in this encounter Additional Health Concerns Assessment Noted Time PHQ-9 Depression Total Score: 9 04/12/20 24 1:56 PM EDT documented as of this encounter Care Teams Lithographic Stripper Relationship Specialty Start Date End Date Kirby Mitchell MD [address] [place] [id number] PCP - General Internal Medicine 11/18/19 documented as of this encounter
--- OUTSIDE RECORDS SUMMARY | 2024-07-12 13:48 | XMS_ITS | Encounter Summary ---
Author Organization [employer] Address 75 [facility] 7t [place] [address] Care Team Providers Care Information Systems Coordinator Name Role Phone Kirby Mitchell MD Primary Care Prov ider Reason for Visit * Reason Onset Date Comments Paperwork/Forms 07/06/2023 Encounter Details Date Type Department Care Team ([facility] st Contact Info) Description 07/06/2023 Telephone [facility] MEDICINE [address] [place] [address] Kirby Mitchell MD [address] [place] [address] Paperwork/Forms Social History Tobacco Use Types Packs/Day Years [...] encounter Miscellaneous Notes * Telephone Encounter - Saritha Reddy RN - 07/06/2023 3:32 PM EST Noted thank you * Telephone Encounter - Saritha Reddy RN - 07/06/2023 3:03 PM EST Please review and advise. It appears that pt was referred to [facility] but status shows as cancelled. Ptis stating having an appt with them on 07/08/23. Unsure if referral was sent with last notes. * Telephone Encounter - Robin Madrid - 07/06/2023 9:47 AM EST Tc from patient requesting all images and clinical notes as well as medication given for the left hand to be sent to [facility] prior to upcoming appt on 07/08/2023 @ 9:00 the fax # documented in this encounter Plan of Treatment Upcoming Encounters Date Type Department Care Team (Late st Contact Info) Description 07/19/2024 9:00 AM EST Nutrition [facility] DIABETES/NTRN [address] [place], [place] [phone] Jessica Luther RD [address] [place] [address] 08/27/2024 10:00 AM EDT Office Visit [facility] ADULT DENTAL [address] [place] [address] Otto Maldonado 09/04/2024 10:00 AM EDT Clinical Support [facility] MED & PEDS [address] [place] [address] Alicia Sanchez, YENI [address] [place] [address] documented as of this encounter Visit Diagnoses Not on filedocumented in this encounter Additional Health Concerns Assessment Noted Time PHQ-9 Depression Total Score: 2 02/04/20 23 11:04 AM EDT documented as of this encounter Care Teams Information Systems Coordinator Relationship Specialty Start Date End Date Kirby Mitchell MD [address] [place] [address] PCP - General Internal Medicine 11/18/19 documented as of this encounter
--- OUTSIDE RECORDS SUMMARY | 2024-07-12 13:48 | XMS_ITS | Encounter Summary ---
Author Organization [employer] Address 75 [facility] 7t [place] [address] Care Team Providers Care Armature Winder Name Role Phone Kirby Mitchell MD Primary Care Prov ider Reason for Visit * Reason Comments Filling Encounter Details Date Type Department Care Team ([facility] st Contact Info) Description 06/29/2024 9:00 AM EST Office Visit [facility] ADULT DENTAL [address] [place] [address] Regina Holden, DDS [address] [place] [address] Social History Tobacco Use Types Packs/Day Years [...] AM EDT documented as of this encounter Last Filed Vital Signs Vital Sign Reading Time Taken Comments Blood Pressure 126/85 06/29/2024 8:59 AM EST Pulse - - Temperature - - Respiratory Rate - - Oxygen Saturation - - Inhaled Oxygen Concentration - - Weight - - Height - - Body Mass Index - - documented in this encounter Progress Notes * Regina Holden DDS - 06/29/2024 9:00 AM EST Dental procedures in this visit [id number] - RESIN-BASED COMPOSITE - 2 SURFACES, POSTERIOR 15 MO (Completed) Service provider: Regina Holden DDS Billing provider: Cleo Rosen DDS Patient ID: Bhanu Marc is a 48 y.o. male. Time Out: Date: 06/29/2024 Location: [facility] Tooth: #15 Procedure: Latter Day Verified the above with patient, certified physician's assistant, and provider. Confirmed via patient's chart, intraorally and by radiographs. Leather Sponger: not applicable Composite jainism done on # [address] Regina Holden DDS Risk, benefits, and alternatives discussed with the patient. CONSENT FORM INITIALED & SIGNED BY THE PATIENT AND COUNTERSIGNED BY Dr. Regina Holden DDS Medical history: Reviewed in EHR Vitals: Blood pressure 126/85. Allergies: Reviewed in EHR Medications: Reviewed in EHR - LA: 20% topical benzocaine; local infiltration with 1 carpule 4% septocaine/articaine 1:100,000 epinephrine - Existing jainism and recurrent decay removed - Mylar strip/Matrix band and wedge used as needed - Desensitizer: gluma - Base: havasupai-lite - Etching done using 37% phosphoric acid. - dramatic agent applied. - Composite jainism done using Filtek body/flowable composite, shade a3 - Anatomy and margins adjusted - Proximal contact confirmed with floss. - Occlusion checked with articulating paper - Necessary reductions made. - Latter Day smoothed and polished. - Post op instructions given Patient satisfied, left in stable condition Patient made aware possible post op sensitivity NV: recall Provider: Dr. Regina Holden DDS Help Desk Rep: Ketan Nelson Supervising dentist: Dr. Rosen * Cleo Rosen DDS - 06/29/2024 9:00 AM EST I have reviewed the documentation and dental procedures completed by the rendering provider, Regina Holden DDS, and approve their chart entries for this visit. MARIKA Gil DDS documented in this encounter Plan of Treatment Upcoming Encounters Date Type Department Care Team (Late st Contact Info) Description 07/19/2024 9:00 AM EST Nutrition [facility] DIABETES/NTRN [address] [place] [address] [place] [address] 08/27/2024 10:00 AM EDT Office Visit [facility] ADULT DENTAL [address] [place] [address] Otto Maldonado 09/04/2024 10:00 AM EDT Clinical Support [facility] MED & PEDS [address] [place] [address] Alicia Sanchez, RN [address] [place] [address] documented as of this encounter Procedures Procedure Name Priority Date/Time Associated Diagnosis Comments 15 MO RESTORATIVE - RESIN-BASED COMPOSITE RESTORATIONS - DIRECT - RESIN-BASED COMPOSITE - TWO SURFACES, POSTERIOR Routine 06/29/2024 9:00 AM EST documented in this encounter Visit Diagnoses Not on filedocumented in this encounter Additional Health Concerns Assessment Noted Time PHQ-9 Depression Total Score: 9 04/12/20 24 1:56 PM EDT documented as of this encounter Care Teams Armature Winder Relationship Specialty Start Date End Date Kirby Mitchell MD [address] [place] [address] PCP - General Internal Medicine 11/18/19 documented as of this encounter
--- OUTSIDE RECORDS SUMMARY | 2024-07-12 13:48 | XMS_ITS | Encounter Summary ---
Author Organization [employer] Address 75 [facility] 7 [place] [address] Care Team Providers Care Raiser Helper Name Role Phone Kirby Mitchell MD Primary Care Prov ider Reason for Visit * Reason Onset Date Comments Med Refill 02/07/2024 Encounter Details Date Type Department Care Team ([facility] st Contact Info) Description 02/07/2024 Telephone [facility] MEDICINE [address] [place] [address] Kirby Mitchell MD 505 [place] [address] Med Refill Social History Tobacco Use Types [...] * Telephone Encounter - Ifrah Cifuentes - 02/07/2024 3:01 PM EDT Tc from pt requesting a refill for oxyCODONE (Roxicodone) 5 MG immediate release tablet documented in this encounter Plan of Treatment Upcoming Encounters Date Type Department Care Team (Late st Contact Info) Description 07/19/2024 9:00 AM EST Nutrition [facility] DIABETES/NTRN 505 [place] [address] [place] [address] 08/27/2024 10:00 AM EDT Office Visit [facility] ADULT DENTAL 505 [place] [address] Otto Maldonado 09/04/2024 10:00 AM EDT Clinical Support [facility] MED & PEDS 505 [place] [address] Alicia Sanchez, RN 505 [place] [address] documented as of this encounter Visit Diagnoses Not on filedocumented in this encounter Additional Health Concerns Assessment Noted Time PHQ-9 Depression Total Score: 2 02/04/20 23 11:04 AM EDT documented as of this encounter Care Teams Raiser Helper Relationship Specialty Start Date End Date Kirby Mitchell MD [address] [place] [address] PCP - General Internal Medicine 11/18/19 documented as of this encounter
--- OUTSIDE RECORDS SUMMARY | 2024-07-12 13:48 | XMS_ITS | Encounter Summary ---
Author Organization [employer] Address 75 [facility] 7t [place] [address] Care Team Providers Care Spray Dyer Name Role Phone Kirby Mitchell MD Primary Care Prov ider Encounter Details Date Type Department Care Team ([facility] Contact Info) Description 11/24/2022 Orders Only [facility] MED & PEDS [address] [place] [address] Kirby Mitchell MD 505 [place] [address] Social History Tobacco Use Types Packs/Day Years Used Date Smoking Tobacco: Every Day Cigarettes Smokeless Tobacco: Never Alcohol Use Standard Drinks/Week Comments Not Currently 0 (1 standard drink = 0.6 oz pur e alcohol) Sex and Gender Information Value Date Recorded Sex Assigned at Male 04/19/2022 10:14 AM EDT Legal Sex Male 10:14 AM EDT Gender Identity Male 04/19/2022 10:14 AM EDT Sexual Orientation Straight 04/19/2022 10 :14 AM EDT COVID-19 Exposure Response Date Recorded In the last 10 days, have yo u been in contact with someone who was confirmed or suspected to have Coronavirus/COVID-19? No / Unsure 11/24/2022 11:00 AM EDT documented as of this encounter Plan of Treatment Upcoming Encounters Date Type Department Care Team ([facility] Contact Info) Description 07/19/2024 9:00 AM EST Nutrition [facility] DIABETES/NTRN [address] [place] [address] Jessica Luther, ROXANA 230 [place] [address] 08/27/2024 10:00 AM EDT Office Visit [facility] ADULT DENTAL [address] [place] [address] Otto Maldonado 09/04/2024 10:00 AM EDT Clinical Support [facility] MED & PEDS [address] [place], [place] [phone] Alicia Sanchez, YENI 505 [place] [address] documented as of this encounter Visit Diagnoses Not on filedocumented in this encounter Care Teams Spray Dyer Relationship Specialty Start Date End Date Kirby Mitchell MD 505 [place] [address] PCP - General Internal Medicine 11/18/19 documented as of this encounter
--- OUTSIDE RECORDS SUMMARY | 2024-07-12 13:48 | XMS_ITS | Encounter Summary ---
Author Organization [employer] Address 75 [facility] 7 [place] [address] Care Team Providers Care Independent Freight Agent Name Role Phone Kirby Mitchell MD Primary Care Prov ider Reason for Visit * Reason Onset Date Comments Med Refill 05/10/2023 Encounter Details Date Type Department Care Team ([facility] st Contact Info) Description 05/10/2023 Telephone [facility] MEDICINE [address] [place] [address] Kirby Mitchell MD 505 [place] [address] Med Refill Social History Tobacco Use Types [...] * Telephone Encounter - Ifrah Cifuentes - 05/10/2023 8:09 AM EST Tc from pt requesting a refill oxyCODONE (Roxicodone) 5 MG immediate release tablet documented in this encounter Plan of Treatment Upcoming Encounters Date Type Department Care Team (Late st Contact Info) Description 07/19/2024 9:00 AM EST Nutrition [facility] DIABETES/NTRN 505 [place] [address] Jessica Luther, RD 230 [place] [address] 08/27/2024 10:00 AM EDT Office Visit [facility] ADULT DENTAL [address] [place] [address] Otto Maldonado 09/04/2024 10:00 AM EDT Clinical Support [facility] MED & PEDS [address] [place] [address] Alicia Sanchez, RN 505 [place] [address] documented as of this encounter Visit Diagnoses Not on filedocumented in this encounter Additional Health Concerns Assessment Noted Time PHQ-9 Depression Total Score: 2 02/04/20 23 11:04 AM EDT documented as of this encounter Care Teams Independent Freight Agent Relationship Specialty Start Date End Date Kirby Mitchell MD [address] [place] [address] PCP - General Internal Medicine 11/18/19 documented as of this encounter
--- OUTSIDE RECORDS SUMMARY | 2024-07-12 13:49 | XMS_ITS | Encounter Summary ---
Author Organization [employer] [facility] Address 75 [facility] 7t [place] [address] Care Team Providers Care Applications Tester Name Role Phone Kirby Mitchell MD Primary Care Prov ider Encounter Details Date Type Department Care Team (Latest Contact Info) Description 11/07/2020 Abstract [facility] CONVERSIONS Dental, Provider, DDS Social History Tobacco Use Types Packs/Day Years [...] Upcoming Encounters Date Type Department Care Team ( st Contact Info) Description 07/19/2024 9:00 AM EST Nutrition [facility] DIABETES/NTRN 505 [place] [address] Jessica Luther, ROXANA [address] [place] [address] 08/27/2024 10:00 AM EDT Office Visit [facility] ADULT DENTAL 505 [place] [address] Otto Maldonado 09/04/2024 10:00 AM EDT Clinical Support [facility] MED & PEDS [address] [place] [address] Alicia Sanchez, YENI 505 [place] [address] documented as of this encounter Visit Diagnoses Not on filedocumented in this encounter Care Teams Applications Tester Relationship Specialty Start Date End Date Kirby Mitchell MD [address] [place] [address] PCP - General Internal Medicine 11/18/19 documented as of this encounter
--- OUTSIDE RECORDS SUMMARY | 2024-07-12 13:49 | XMS_ITS | Encounter Summary ---
Author Organization [employer] [facility] Address 75 [facility] 7t [place] [address] Care Team Providers Care Sales And In Home Delivery Specialist Name Role Phone Kirby Mitchell MD Primary Care Prov ider Encounter Details Date Type Department Care Team (Latest Contact Info) Description 12/11/2018 Abstract [facility] CONVERSIONS Dental, Provider, DDS Social History [...] Info) Description 07/19/2024 9:00 AM EST Nutrition [facility] DIABETES/NTRN [address] [place] [address] 230 [place] [address] 08/27/2024 10:00 AM EDT Office Visit [facility] ADULT DENTAL [address] [place] [address] Otto Maldonado 09/04/2024 10:00 AM EDT Clinical Support [facility] MED & PEDS [address] [place] [address] Alicia Sanchez, YENI 505 [place] [address] documented as of this encounter Visit Diagnoses Not on filedocumented in this encounter Care Teams Sales And In Home Delivery Specialist Relationship Specialty Start Date End Date Kirby Mitchell MD [address] [place] [address] PCP - General Internal Medicine 11/18/19 documented as of this encounter
--- OUTSIDE RECORDS SUMMARY | 2024-07-12 13:49 | XMS_ITS | Encounter Summary ---
Author Organization [employer] Address 75 [facility] 7 [place] [address] Care Team Providers Care Orthopaedic Physician Assistant Name Role Phone Kirby Mitchell MD Primary Care Prov ider Reason for Visit * Reason Onset Date Comments Med Refill 11/22/2022 Encounter Details Date Type Department Care Team ([facility] st Contact Info) Description 11/22/2022 Telephone [facility] MEDICINE [address] [place] [address] Kirby Mitchell MD 505 [place] [address] Med Refill Social History Tobacco Use Types [...] * Telephone Encounter - Ifrah Cifuentes - 11/23/2022 3:29 PM EDT Tc from pt requesting to speak to MANAGER DATA CENTER RN, States has some further questions & concerns in regards to scheduled appt. Please contact at [phone] * Telephone Encounter - Ifrah Cifuentes - 11/22/2022 11:59 AM EDT Tc from pt requesting a med refill for oxycodone 5 mg documented in this encounter Plan of Treatment Upcoming Encounters Date Type Department Care Team (Late st Contact Info) Description 07/19/2024 9:00 AM EST Nutrition [facility] DIABETES/NTRN 505 [place] [address] Jessica Luther, RD [address] [place], [place] [id number] 08/27/2024 10:00 AM EDT Office Visit [facility] ADULT DENTAL [address] [place] [address] Otto Maldonado 09/04/2024 10:00 AM EDT Clinical Support [facility] MED & PEDS [address] [place] [address] Alicia Sanchez, YENI 505 [place] [address] documented as of this encounter Visit Diagnoses Not on filedocumented in this encounter Care Teams Orthopaedic Physician Assistant Relationship Specialty Start Date End Date Kirby Mitchell MD 505 [place] [address] PCP - General Internal Medicine 11/18/19 documented as of this encounter
--- OUTSIDE RECORDS SUMMARY | 2024-07-12 13:49 | XMS_ITS | Clinical Summary ---
Author Organization [facility], Address [address] [place] [address] [place] [address] Phone Care Team Providers Care Continuous Absorption Process Operator Name Role Phone Kirby Garcia Primary Care Provider Allergies No known active allergies Medications atorvastatin (LIPITOR) 10 MG tablet Take 10 mg by mouth 1 (one) time each day Active tamsulosin (FLOMAX) 0.4 MG 24 hr capsule TK 1 C PO QD 30 MIN AFTER THE SAME MEAL 05/06/2020 Active oxyCODONE (ROXICODONE) 5 MG immediate release tablet Take 5 mg by mouth 2 (two) times a day if needed 06/19/2020 Active lisinopril 10 MG tabletIndication s:Nephrolithiasi s,Essential (primary) hypertension,Obs tructive sleep apnea Take 1 tablet (10 mg total) by mouth 1 (one) time each day 90 tablet 3 08/08/2023 Active hydroCHLOROthiaz devaughn 25 MG tabletIndication s:Nephrolithiasi s,Essential (primary) hypertension,Obs tructive sleep apnea Take 1 tablet (25 mg total) by mouth 1 (one) time each day 90 tablet 3 08/08/2023 Active Active Problems Problem Noted Date Diagnosed Date Nephrocalcinosis 07/28/2022 Essential (primary) hypertension 07/28/2022 Obstructive sleep apnea 07/28/2022 Nephrolithiasis Overview (07/05/2019): chronic recurrent Vitamin D deficiency Loin pain-hematuria syndrome Hypertriglyceridemia Immunizations Name Administration Dates Next Due Influenza, MDCK, Quadrivalent, with preservative 04/07/2017 Family History Medical History Relation Comments Hypertension Mother Relation Status Comments Father Alive Mother Alive Social History Tobacco Use Types Packs/Day Years Used Date Smoking Tobacco: Every Day Cigarettes Alcohol Use Standard Drinks/Week Comments Yes 0 (1 standard drink = 0.6 oz pure alcohol) Alcoholic Drinks/day: Occasional social drink Sex and Gender Information Value Date Recorded Sex Assigned at Not on file Legal Sex Male 4:34 PM EST Gender Identity Not on file Sexual Orientation Not on file Last Filed Vital Signs Vital Sign Reading Time Taken Comments Blood Pressure 122/74 07/27/2023 1:57 PM EST Pulse 74 07/27/2023 1:57 PM EST Temperature - - Respiratory Rate - - Oxygen Saturation - - Inhaled Oxygen Concentration - - Weight 112 kg (247 lb) 07/05/2019 2:00 PM EST Height 182.9 cm (6') 07/05/2019 2:00 PM EST Body Mass Index 33.5 07/05/2019 2:00 PM EST Plan of Treatment Upcoming Encounters Date Type Department Care Team (Late st Contact Info) Description 07/25/2024 1:45 PM EST Office Visit [facility] [address] [place] [address] Kerwin Murguia DO [address] [place] [address] Health Maintenance Due Date Last Done Comments Pneumococcal Vaccine: Pediat rics (0 to 5 Years) and At-Risk Patients (6 to 64 Years) (1 of 2 - PCV) 1980 Hepatitis B Vaccine (1 of 3 - 19+ 3-dose series) 08/25 Colorectal Cancer Screening: Annual FOBT 08/26/2023 Colorectal Cancer Screening: Colonoscopy 08/26/2023 Colorectal Cancer Screening: Sigmoidoscopy 08/26/2023 Influenza Vaccine (#1) 2024 04/07/2017 Insurance MEDICARE MEDICAID [place] Care Teams Continuous Absorption Process Operator Relationship Specialty Start Date End Date Kirby Garcia: [phone] PCP - General Internal Medicine 07/28/22
--- OUTSIDE RECORDS SUMMARY | 2024-07-12 13:49 | XMS_ITS | Encounter Summary ---
Author Organization [facility], Address [address] [place] [address] Phone Care Team Providers Care Maintenance Technician Name Role Phone Kirby Garcia Primary Care Provider + [phone] Reason for Visit * Reason Onset Date Comments Med Refill 02/06/2024 Encounter Details Date Type Department Care Team (Late st Contact Info) Description 02/06/2024 Refill [facility] [address] [place] [address] Kerwin Murguia DO [address] [facility] [facility] [address] [place] [address] Social History Tobacco Use Types Packs/Day Years Used Date Smoking Tobacco: Every Day Cigarettes Alcohol Use Standard Drinks/Week Comments Yes 0 (1 standard drink = 0.6 oz pure alcohol) Alcoholic Drinks/day: Occasional social drink Sex and Gender Information Value Date Recorded Sex Assigned at Not on file Legal Sex Male 4:34 PM EST Gender Identity Not on file Sexual Orientation Not on file documented as of this encounter Plan of Treatment Upcoming Encounters Date Type Department Care Team (Late st Contact Info) Description 07/25/2024 1:45 PM EST Office Visit [facility] [address] [place] [address] Kerwin Murguia DO [address] [facility] [facility] [facility] [address] [place] [address] documented as of this encounter Visit Diagnoses Not on filedocumented in this encounter Care Teams Maintenance Technician Relationship Specialty Start Date End Date Kirby Garcia PCP - General Internal Medicine 07/28/22 documented as of this encounter
--- OUTSIDE RECORDS SUMMARY | 2024-07-12 13:49 | XMS_ITS | Encounter Summary ---
Author Organization [employer] Address 75 [facility] 7 [place] [address] Care Team Providers Care Shoulder Sawyer Name Role Phone Kirby Mitchell MD Primary Care Prov ider Reason for Visit * Reason Onset Date Comments Lab Orders 05/26/2022 call back 05/26/2022 Encounter Details Date Type Department Care Team ([facility] st Contact Info) Description 05/26/2022 Telephone [facility] CHC MED & PEDS [address] [place] [address] Kirby Mitchell MD [address] [place] [address] Lab Orders; call back Social History Tobacco Use Types Packs/Day Years Used Date Smoking Tobacco: Never Assessed Sex and Gender Information Value Date Recorded Sex Assigned at Male 04/19/2022 10:14 AM EDT Legal Sex Male 10:14 AM EDT Gender Identity Male 04/19/2022 10:14 AM EDT Sexual Orientation Straight 04/19/2022 10 :14 AM EDT documented as of this encounter Miscellaneous Notes * Telephone Encounter - Dawn Sands - 05/31/2022 3:09 PM EST Tc from pt requesting call back from nurse, regarding hid medication Oxycodone, pt states they gavehim 7 day supply and it have to for 28 days * Telephone Encounter - Terri Wiseman RN - 05/28/2022 10:32 AM EST Please follow up with med refill request for Oxycodone. Thank you. * Telephone Encounter - Terri Wiseman RN - 05/28/2022 10:26 AM EST Call placed to pt. Per pt, had Televisit with PCP on 05/17/22. States he was advised that kidney/liver function tests would be ordered. Calling on status. RN advised no order on file from 05/17/22. Labs were ordered to assess BMP, cholesterol, liver profile, and electrolytes in 01/2022. Labs were not completed. Advised will consult with PCP to clarify. Pt also states he completed at CT, biopsy, and sleep study ordered by ENT. Pt wanting to know if PCP received notes/results. RN advised no results in system but will request these from ENT and will send reports to scan once received. Per pt, also called in refill for Oxy x2 days ago. RN advised no note in system but will forward to appropriate staff to follow up on request. RN consulted with PCP who states pt should complete the labs that were ordered in 01/2022. RN informed pt and pt verbalizes understanding. Aware of [facility] lab hours. Request for notes faxed to ENT at [phone]. * Telephone Encounter - Rach Vaughan - 05/26/2022 1:21 PM EST Tc from pt requesting to speak with a nurse regarding a Liver function test and a kidney function test orders. Pt states this request was made during an tele RV appt with Dr Garcia on 05/17/22. Please contact [phone] documented in this encounter Plan of Treatment Upcoming Encounters Date Type Department Care Team ([facility] st Contact Info) Description 07/19/2024 9:00 AM EST Nutrition [facility] DIABETES/NTRN [address] [place] [address] Jessica Luther, RD 230 [place] [address] 08/27/2024 10:00 AM EDT Office Visit [facility] ADULT DENTAL [address] [place] [address] Otto Maldonado 09/04/2024 10:00 AM EDT Clinical Support [facility] MED & PEDS [address] [place] [address] Alicia Sanchez RN 505 [place] [address] documented as of this encounter Visit Diagnoses Not on filedocumented in this encounter Care Teams Shoulder Sawyer Relationship Specialty Start Date End Date Kirby Mitchell MD [address] [place] [address] PCP - General Internal Medicine 11/18/19 documented as of this encounter
--- OUTSIDE RECORDS SUMMARY | 2024-07-12 13:49 | XMS_ITS | Encounter Summary ---
Author Organization [facility] Address 75 [facility] 7t [place] [address] Care Team Providers Care Insurance Sales Assistant Name Role Phone Kirby Mitchell MD Primary Care Prov ider Encounter Details Date Type Department Care Team (Latest Contact Info) Description 05/06/2022 Abstract [facility] CONVERSIONS Dental, Provider, DDS Social History [...] Info) Description 07/19/2024 9:00 AM EST Nutrition [facility] DIABETES/NTRN [address] [place] [address] Jessica Luther, ROXANA 230 [place] [address] 08/27/2024 10:00 AM EDT Office Visit [facility] ADULT DENTAL [address] [place] [address] Otto Maldonado 09/04/2024 10:00 AM EDT Clinical Support [facility] MED & PEDS [address] [place] [address] Alicia Sanchez, YENI 505 [place] [address] documented as of this encounter Visit Diagnoses Not on filedocumented in this encounter Care Teams Insurance Sales Assistant Relationship Specialty Start Date End Date Kirby Mitchell MD [address] [place] [address] PCP - General Internal Medicine 11/18/19 documented as of this encounter
--- OUTSIDE RECORDS SUMMARY | 2024-07-12 13:49 | XMS_ITS | Encounter Summary ---
Author Organization [employer] Address [address] [facility] 7t [place] [address] Care Team Providers Care Inspector Weights And Measures Name Role Phone Kirby Mitchell MD Primary Care Prov ider Encounter Details Date Type Department Care Team (Late st Contact Info) Description 05/31/2022 Orders Only [facility] MEDICINE [address] [place] [address] Kirby Mitchell MD [address] [place] [address] Loin pain hematuria syndrome (Primary Dx) Social History Tobacco Use Types Packs/Day Years [...] [facility] DIABETES/NTRN 505 [place], [place] [phone] Jessica Luther [address] [place] [address] 08/27/2024 10:00 AM EDT Office Visit [facility] ADULT DENTAL [address] [place] [address] Otto Maldonado 09/04/2024 10:00 AM EDT Clinical Support [facility] CHC MED & PEDS [address] [place] [address] Alicia Sanchez, YENI 505 [place] [address] documented as of this encounter Visit Diagnoses Diagnosis Loin pain hematuria syndrome- Primary documented in this encounter Care Teams Inspector Weights And Measures Relationship Specialty Start Date End Date Kirby Mitchell MD 505 [place] [address] PCP - General Internal Medicine 11/18/19 documented as of this encounter
[2024-07-19 13:57] LABS: Testosterone, Free 48.8 pg/mL (35.0-155.0); Testosterone, Total 215 ng/dL (250-1100)
== END 2024-07-12 11:24 | disposition home or self-care (01) ==
LOC: HO.LAB 11:23
PROVIDERS: PCP Internal Medicine; Visit Provider Internal Medicine
DX: R79.89 Other specified abnormal findings of blood chemistry (principal); M54.2 Cervicalgia
CPT/HCPCS: 36415; 72050; 84402; 84403

== ENCOUNTER → 2024-07-12 11:51 | Outpatient (BNV) | payer MEDICARE, MEDICAID, SELFPAY | PROVIDERS: PCP Internal Medicine; Visit Provider Radiology Diagnostic Radiology | DX: M54.2 Cervicalgia (principal) | CPT/HCPCS: 72050 ==